=== PATIENT | female | born 1940 | race American Indian/Alaskan Native ===

== ENCOUNTER 2016-05-07 09:00 | Emergency (ER) | payer MEDICARE ==
[2016-05-07] MEDS ORDERED: NACL 0.9% 1000 ML 1,000 ML IV ONE (10:42)
[2016-05-07 11:07] LABS: Eosinophils % (Auto) 4.6 % (0.0-4.3); Hematocrit 32.9 % (30.3-42.9); Hemoglobin 10.7 gm/dl (10.1-14.3); Mean Corpuscular HGB Conc 33 % (30-34); Mean Corpuscular Hemoglobin 28 pg (28-32); Mean Corpuscular Volume 87 fl (79-97); Platelet Count 147 K/mm3 (140-440); Red Blood Count 3.78 M/mm3 (3.65-5.03); Red Cell Distribution Width 14.2 % (13.2-15.2); White Blood Count 4.3 K/mm3 (4.5-11.0)
[2016-05-07 11:26] LABS: Alanine Aminotransferase 20 units/L (7-56); Albumin 3.8 g/dL (3.9-5); Albumin/Globulin Ratio 1.2 %; Alkaline Phosphatase 57 units/L (35-129); Anion Gap 15 mmol/L; BUN/Creatinine Ratio 20.71; Bilirubin,Total 0.2 mg/dL (0.1-1.2); Blood Urea Nitrogen 29 mg/dL (7-17); Calcium 9.2 mg/dL (8.4-10.2); Carbon Dioxide 29 mmol/L (22-30); Chloride 104.4 mmol/L (98-107); Glucose 94 mg/dL (65-100); Potassium 4.9 mmol/L (3.6-5.0); Sodium 143 mmol/L (137-145)
[2016-05-07 11:44] LABS: Bilirubin,Direct < 0.2 mg/dL (0-0.2)
--- NOTE | 2016-05-07 12:42 | Emergency Department Report ---
ED General Adult HPI - General Chief complaint: Earache Stated complaint: EAR PAIN Time Seen by Provider: 05/07/16 10:30 Source: patient Mode of arrival: Ambulatory Limitations: No Limitations - History of Present Illness Initial comments: I am told that this patient was sent here by ambulance because she couldn't get an appointment with an ear nose and throat doctor. Supposedly she has been to the emergency department at [place] for right ear pain. She is not currently on an antibiotic. The patient herself is a very poor historian. After some time it does seem apparent that she indeed has some right ear discomfort. She does not have any other complaint. She actually does not know why she is here at the emergency department. She is aware she is in the emergency department notwithstanding. -: unknown Location: right (ear) Severity scale (0 -10): 0 Consistency: intermittent Improves with: none Worsens with: none Treatments Prior to Arrival: none - Related Data Home Medications Medication Instructions Recorded Confirmed Last Taken Hydrochlorothiazide 25 mg PO DAILY 11/27/13 05/07/16 05/06/16 Lisinopril [Zestril] 40 mg PO DAILY 11/27/13 05/07/16 05/06/16 Memantine HCl [Namenda] 10 mg PO BID 11/27/13 05/07/16 05/06/16 Oxybutynin [Ditropan] 10 mg PO BID 11/27/13 05/07/16 05/06/16 Simvastatin 10 mg PO QHS 11/27/13 05/07/16 05/06/16 Ascorbate Calcium [Vitamin C] 500 mg PO QDAY 01/05/14 05/07/16 05/06/16 Calcium Carbonate [Calcium] 600 mg PO QDAY 01/05/14 05/07/16 05/06/16 Cholecalciferol (Vitamin D3) 400 unit PO QDAY 01/05/14 05/07/16 05/06/16 [Vitamin D3] Vitamin E 400 unit PO QDAY 01/05/14 05/07/16 05/06/16 metFORMIN [Glucophage] 500 mg PO BID 01/05/14 05/07/16 05/06/16 Pregabalin [Lyrica] 1 cap PO BID 02/04/14 05/07/16 05/06/16 Rivastigmine Tartrate 6 mg PO BID 03/15/14 05/07/16 05/06/16 [Rivastigmine] Previous Rx's Medication Instructions Recorded Last Taken Type levETIRAcetam [Keppra TAB] 500 mg PO BID #60 tablet 12/28/15 05/06/16 Rx Amoxicillin/K Clav Tab [Augmentin 1 each PO Q8HR #21 tablet 05/07/16 Unknown Rx 500 MG TAB] Ofloxacin 0.3% [Floxin] 3 drops AD QID #1 bottle 05/07/16 Unknown Rx Allergies Allergy/AdvReac Type Severity Reaction Status Date / Time shellfish derived Allergy Nausea Verified 02/05/14 15:17 ED Review of Systems ROS: Stated complaint: EAR PAIN Other details as noted in HPI Constitutional: denies: chills, fever Eyes: denies: eye pain, eye discharge, vision change ENT: as per HPI, ear pain. denies: throat pain Respiratory: denies: cough, shortness of breath, wheezing Cardiovascular: denies: chest pain, palpitations Endocrine: no symptoms reported Gastrointestinal: denies: abdominal pain, nausea, diarrhea Genitourinary: denies: urgency, dysuria, discharge Musculoskeletal: denies: back pain, joint swelling, arthralgia Skin: denies: rash, lesions Neurological: denies: headache, weakness, paresthesias Psychiatric: denies: anxiety, depression Hematological/Lymphatic: denies: easy bleeding, easy bruising ED Past Medical Hx - Past Medical History Previous Medical History?: Yes Hx Hypertension: Yes Hx Heart Attack/AMI: No Hx Congestive Heart Failure: No Hx Diabetes: Yes Hx Deep Vein Thrombosis: No Hx GERD: Yes Hx Liver Disease: No Hx Renal Disease: Yes (CKD III, DR. PATRICK AU) Hx Sickle Cell Disease: No Hx Arthritis: Yes Hx Seizures: No Hx Psychiatric Treatment: Yes (anxiety) Hx Asthma: No Hx COPD: No Hx Tuberculosis: No Hx Dementia: Yes Hx HIV: No Additional medical history: neuropathy - Surgical History Past Surgical History?: No Hx Coronary Stent: No Hx Open Heart Surgery: No Hx Pacemaker: No Hx Internal Defibrillator: No Hx Cholecystectomy: No Hx Appendectomy: No Hx Breast Surgery: No - Social History Smoking Status: Unknown if ever smoked Substance Use Type: None - Medications Home Medications: Home Medications Medication Instructions Recorded Confirmed Last Taken Type Hydrochlorothiazide 25 mg PO DAILY 11/27/13 05/07/16 05/06/16 History Lisinopril [Zestril] 40 mg PO DAILY 11/27/13 05/07/16 05/06/16 History Memantine HCl [Namenda] 10 mg PO BID 11/27/13 05/07/16 05/06/16 History Oxybutynin [Ditropan] 10 mg PO BID 11/27/13 05/07/16 05/06/16 History Simvastatin 10 mg PO QHS 11/27/13 05/07/16 05/06/16 History Ascorbate Calcium [Vitamin C] 500 mg PO QDAY 01/05/14 05/07/16 05/06/16 History Calcium Carbonate [Calcium] 600 mg PO QDAY 01/05/14 05/07/16 05/06/16 History Cholecalciferol (Vitamin D3) 400 unit PO QDAY 01/05/14 05/07/16 05/06/16 History [Vitamin D3] Vitamin E 400 unit PO QDAY 01/05/14 05/07/16 05/06/16 History metFORMIN [Glucophage] 500 mg PO BID 01/05/14 05/07/16 05/06/16 History Pregabalin [Lyrica] 1 cap PO BID 02/04/14 05/07/16 05/06/16 History Rivastigmine Tartrate 6 mg PO BID 03/15/14 05/07/16 05/06/16 History [Rivastigmine] levETIRAcetam [Keppra TAB] 500 mg PO BID #60 tablet 12/28/15 05/07/16 05/06/16 Rx Amoxicillin/K Clav Tab [Augmentin 1 each PO Q8HR #21 tablet 05/07/16 Unknown Rx 500 MG TAB] Ofloxacin 0.3% [Floxin] 3 drops AD QID #1 bottle 05/07/16 Unknown Rx ED Physical Exam - General Limitations: Other (dementia) General appearance: alert, in no apparent distress - Head Head exam: Present: atraumatic, normocephalic - Eye Eye exam: Present: normal appearance. Absent: scleral icterus - ENT ENT exam: Present: mucous membranes moist, other (there is small amount of white discharge in the external auditory canal. The tympanic membrane cannot be visualized. There is mild tenderness on traction of the ear. However there is no contralateral involvement or erythema or edema of the external ear itself. ) - Neck Neck exam: Present: normal inspection. Absent: tenderness, meningismus - Respiratory Respiratory exam: Present: normal lung sounds bilaterally. Absent: respiratory distress - Cardiovascular Cardiovascular Exam: Present: regular rate, normal rhythm. Absent: systolic murmur, diastolic murmur, rubs, gallop - GI/Abdominal GI/Abdominal exam: Present: soft, normal bowel sounds. Absent: distended, tenderness, guarding, rebound - Extremities Exam Extremities exam: Present: normal inspection - Back Exam Back exam: Present: normal inspection - Neurological Exam Neurological exam: Present: alert, other (no acute focal deficit). Absent: oriented X3 (her name and where she is in the emergency department) - Psychiatric Psychiatric exam: Present: normal mood, flat affect - Skin Skin exam: Present: warm, dry, intact, normal color, other (appears dry minimal tenting). Absent: rash ED Course Vital Signs 05/07/16 05/07/16 05/07/16 10:08 12:17 13:03 Temperature 98.3 F 98.1 F Pulse Rate 73 66 Respiratory 18 18 16 Rate Blood Pressure 133/59 Blood Pressure 162/82 [Right] O2 Sat by Pulse 97 99 99 Oximetry ED Medical Decision Making - Lab Data Result diagrams: 05/07/16 10:46 05/07/16 10:46 Laboratory Results - last 24 hr 05/07/16 05/07/16 05/07/16 10:46 10:46 10:46 WBC 4.3 L RBC 3.78 Hgb 10.7 Hct 32.9 MCV 87 MCH 28 MCHC 33 RDW 14.2 Plt Count 147 Lymph % (Auto) 32.3 [place] % (Auto) 8.6 H Eos % (Auto) 4.6 H Baso % (Auto) 1.0 Lymph # 1.4 [place] # 0.4 Eos # 0.2 Baso # 0.0 Seg Neutrophils % 53.5 Seg Neutrophils # 2.3 Sodium 143 Potassium 4.9 Chloride 104.4 Carbon Dioxide 29 Anion Gap 15 BUN 29 H Creatinine 1.4 H Estimated GFR 44 BUN/Creatinine Ratio 20.71 Glucose 94 Calcium 9.2 Total Bilirubin 0.2 Direct Bilirubin < 0.2 AST 28 ALT 20 Alkaline Phosphatase 57 Ammonia 38.0 Total Protein 7.0 Albumin 3.8 L Albumin/Globulin Ratio 1.2 Laboratory Results - last 24 hr 05/07/16 05/07/16 05/07/16 10:46 10:46 10:46 WBC 4.3 L RBC 3.78 Hgb 10.7 Hct 32.9 MCV 87 MCH 28 MCHC 33 RDW 14.2 Plt Count 147 Lymph % (Auto) 32.3 [place] % (Auto) 8.6 H Eos % (Auto) 4.6 H Baso % (Auto) 1.0 Lymph # 1.4 [place] # 0.4 Eos # 0.2 Baso # 0.0 Seg Neutrophils % 53.5 Seg Neutrophils # 2.3 Sodium 143 Potassium 4.9 Chloride 104.4 Carbon Dioxide 29 Anion Gap 15 BUN 29 H Creatinine 1.4 H Estimated GFR 44 BUN/Creatinine Ratio 20.71 Glucose 94 Calcium 9.2 Total Bilirubin 0.2 Direct Bilirubin < 0.2 AST 28 ALT 20 Alkaline Phosphatase 57 Ammonia 38.0 Total Protein 7.0 Albumin 3.8 L Albumin/Globulin Ratio 1.2 Urine Color Urine Turbidity Urine pH Ur Specific [place] Urine Protein Urine Glucose (UA) Urine Ketones Urine Blood Urine Nitrite Urine Bilirubin Urine Urobilinogen Ur Leukocyte Esterase Urine WBC (Auto) Urine RBC (Auto) 05/07/16 12:24 WBC RBC Hgb Hct MCV MCH MCHC RDW Plt Count Lymph % (Auto) [place] % (Auto) Eos % (Auto) Baso % (Auto) Lymph # [place] # Eos # Baso # Seg Neutrophils % Seg Neutrophils # Sodium Potassium Chloride Carbon Dioxide Anion Gap BUN Creatinine Estimated GFR BUN/Creatinine Ratio Glucose Calcium Total Bilirubin Direct Bilirubin AST ALT Alkaline Phosphatase Ammonia Total Protein Albumin Albumin/Globulin Ratio Urine Color Yellow Urine Turbidity Clear Urine pH 5.0 Ur Specific [place] 1.013 Urine Protein <15 mg/dl Urine Glucose (UA) Neg Urine Ketones Neg Urine Blood Neg Urine Nitrite Neg Urine Bilirubin Neg Urine Urobilinogen < 2.0 Ur Leukocyte Esterase Neg Urine WBC (Auto) < 1.0 Urine RBC (Auto) < 1.0 Critical care attestation.: If time is entered above; I have spent that time in minutes in the direct care of this critically ill patient, excluding procedure time. 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 Return fever here swelling any acute change or problem. Tylenol for pain. Prescriptions: Amoxicillin/K Clav Tab [Augmentin 500 MG TAB] 1 each PO Q8HR #21 tablet Ofloxacin 0.3% [Floxin] 3 drops AD QID #1 bottle Referrals: MANJULA CRUZ MD [Primary Care Provider] - 3-5 Days AG MALCOLM MD [Staff Physician] - 2-3 Days Time of Disposition: 14:18
[2016-05-07 12:51] LABS: Bilirubin,Urine NEG (Negative); Blood,Urine NEG (Negative); Ketones,Urine NEG (Negative); Leukocyte Esterase,Urine NEG (Negative); Nitrite,Urine NEG (Negative); Protein,Urine <15 mg/dL mg/dL (Negative); RBC,Urine < 1.0 /HPF (0.0-6.0); Urobilinogen,Urine < 2.0 mg/dL (<2.0); WBC,Urine < 1.0 /HPF (0.0-6.0)
[2016-05-07] MEDS ORDERED: NORCO 5/325 ONE (14:47)
[2016-05-07] MEDS ORDERED: NORCO 5/325 PO ONE (15:01)
[2016-05-07 15:03] VITALS: BP 163/86
== END 2016-05-07 15:25 | disposition home or self-care (01) ==
LOC: ED 09:00
DX: H60.61 Unspecified chronic otitis externa, right ear (principal); E11.69 Type 2 diabetes mellitus with other specified complication; N28.9 Disorder of kidney and ureter, unspecified; G30.9 Alzheimer's disease, unspecified; F02.81 Dementia in other diseases classified elsewhere, unspecified severity, with behavioral disturbance; E11.9 Type 2 diabetes mellitus without complications; K21.9 Gastro-esophageal reflux disease without esophagitis; I12.9 Hypertensive chronic kidney disease with stage 1 through stage 4 chronic kidney disease, or unspecified chronic kidney disease; N18.3 Chronic kidney disease, stage 3 (moderate); F03.90 Unspecified dementia, unspecified severity, without behavioral disturbance, psychotic disturbance, mood disturbance, and anxiety
CPT/HCPCS: 36415; 80048; 80074; 81001; 82140; 85025; 96360; 96361; 99284; J7030

== ENCOUNTER 2017-08-02 06:11 | Inpatient (IN) | payer MEDICARE ==
[2017-08-02 07:34] LABS: Hematocrit 35.4 % (30.3-42.9); Hemoglobin 11.4 gm/dl (10.1-14.3); Mean Corpuscular HGB Conc 32 % (30-34); Mean Corpuscular Hemoglobin 28 pg (28-32); Mean Corpuscular Volume 88 fl (79-97); Platelet Count 191 K/mm3 (140-440); Red Blood Count 4.04 M/mm3 (3.65-5.03); Red Cell Distribution Width 14.2 % (13.2-15.2)
--- NOTE | 2017-08-02 08:00 | XRay Report ---
FINAL REPORT EXAM: XR CHEST 1V AP HISTORY: syncope TECHNIQUE: AP portable view(s) of the chest obtained. PRIORS: None. FINDINGS: No mediastinal shift. Cardiac silhouette is not enlarged. No pneumothorax, effusion, or focal pulmonary opacity identified. No acute skeletal findings. IMPRESSION: No acute pulmonary finding identified.
--- NOTE | 2017-08-02 08:07 | Cat Scan Report ---
CT HEAD WITHOUT CONTRAST INDICATION: Syncope. COMPARISON: November [address] and MRI. FINDINGS: Noncontrast head CT limited due to motion, though suggests stable, age-appropriate ventricles and sulci with mild periventricular white matter hypodensities. No definite acute infarct, hemorrhage, mass effect or midline shift. No abnormal extra-axial fluid collections. Grossly normal posterior fossa with preserved basilar cisterns. Stable right cataract surgery. Mild left maxillary sinus mucosal thickening. Clear remainder imaged paranasal sinuses and mastoid air cells. Mild atherosclerotic ICA calcifications. Intact calvarium and scalp. Radiopaque maxillary molar dental filling. CONCLUSION: No acute intracranial CT abnormality with age-appropriate atrophy, microvascular changes and left maxillary sinusitis on this limited exam, as described. Thank you for the opportunity to participate in this patient's care.
[2017-08-02 08:40] LABS: Alanine Aminotransferase 13 units/L (7-56); Albumin 4.1 g/dL (3.9-5); BUN/Creatinine Ratio 22; Blood Urea Nitrogen 28 mg/dL (7-17); Calcium 9.4 mg/dL (8.4-10.2); Hemolysis Index 33
--- NOTE | 2017-08-02 08:55 | Emergency Department Report ---
ED General Adult HPI - General Chief complaint: Syncope Stated complaint: UNRESPONSICE /PER FAMILY Time Seen by Provider: 08/02/17 06:39 Source: EMS Mode of arrival: Ambulatory Limitations: Altered Mental Status - History of Present Illness Initial comments: Patient presents to the emergency department with complaint of a syncopal episode. Patient currently denies any chest pain, shortness of breath, or headache. -: Sudden Location: head Radiation: non-radiation Severity scale (0 -10): 1 Quality: dull Consistency: constant Improves with: none Worsens with: none Associated Symptoms: denies other symptoms Treatments Prior to Arrival: none - Related Data Home Medications Medication Instructions Recorded Confirmed Last Taken Hydrochlorothiazide 25 mg PO DAILY 11/27/13 05/07/16 05/06/16 Lisinopril [Zestril] 40 mg PO DAILY 11/27/13 05/07/16 05/06/16 Memantine HCl [Namenda] 10 mg PO BID 11/27/13 05/07/16 05/06/16 Oxybutynin [Ditropan] 10 mg PO BID 11/27/13 05/07/16 05/06/16 Simvastatin 10 mg PO QHS 11/27/13 05/07/16 05/06/16 Ascorbate Calcium [Vitamin C] 500 mg PO QDAY 01/05/14 05/07/16 05/06/16 Calcium Carbonate [Calcium] 600 mg PO QDAY 01/05/14 05/07/16 05/06/16 Cholecalciferol (Vitamin D3) 400 unit PO QDAY 01/05/14 05/07/16 05/06/16 [Vitamin D3] Vitamin E 400 unit PO QDAY 01/05/14 05/07/16 05/06/16 metFORMIN [Glucophage] 500 mg PO BID 01/05/14 05/07/16 05/06/16 Pregabalin [Lyrica] 1 cap PO BID 02/04/14 05/07/16 05/06/16 Rivastigmine Tartrate 6 mg PO BID 03/15/14 05/07/16 05/06/16 [Rivastigmine] Previous Rx's Medication Instructions Recorded Last Taken Type levETIRAcetam [Keppra TAB] 500 mg PO BID #60 tablet 12/28/15 05/06/16 Rx Amoxicillin/K Clav Tab [Augmentin 1 each PO Q8HR #21 tablet 05/07/16 Unknown Rx 500 MG TAB] Ofloxacin 0.3% [Floxin] 3 drops AD QID #1 bottle 05/07/16 Unknown Rx Allergies Allergy/AdvReac Type Severity Reaction Status Date / Time shellfish derived Allergy Nausea Verified 02/05/14 15:17 ED Review of Systems ROS: Stated complaint: UNRESPONSICE /PER FAMILY Other details as noted in HPI Comment: All other systems reviewed and negative Constitutional: denies: chills, fever Eyes: denies: eye pain, eye discharge, vision change ENT: denies: ear pain, throat pain Respiratory: denies: cough, shortness of breath, wheezing Cardiovascular: denies: chest pain, palpitations Endocrine: no symptoms reported Gastrointestinal: denies: abdominal pain, nausea, diarrhea Genitourinary: denies: urgency, dysuria, discharge Musculoskeletal: denies: back pain, joint swelling, arthralgia Skin: denies: rash, lesions Neurological: denies: headache, weakness, paresthesias Psychiatric: denies: anxiety, depression Hematological/Lymphatic: denies: easy bleeding, easy bruising ED Past Medical Hx - Past Medical History Hx Hypertension: Yes Hx Heart Attack/AMI: No Hx Congestive Heart Failure: No Hx Diabetes: Yes Hx Deep Vein Thrombosis: No Hx GERD: Yes Hx Liver Disease: No Hx Renal Disease: Yes (CKD III, DR. NGUYEN NEPHKANE) Hx Sickle Cell Disease: No Hx Arthritis: Yes Hx Seizures: No Hx Psychiatric Treatment: Yes (anxiety) Hx Asthma: No Hx COPD: No Hx Tuberculosis: No Hx Dementia: Yes Hx HIV: No Additional medical history: neuropathy - Surgical History Hx Coronary Stent: No Hx Open Heart Surgery: No Hx Pacemaker: No Hx Internal Defibrillator: No Hx Cholecystectomy: No Hx Appendectomy: No Hx Breast Surgery: No - Social History Smoking Status: Unknown if ever smoked Substance Use Type: None - Medications Home Medications: Home Medications Medication Instructions Recorded Confirmed Last Taken Type Hydrochlorothiazide 25 mg PO DAILY 11/27/13 05/07/16 05/06/16 History Lisinopril [Zestril] 40 mg PO DAILY 11/27/13 05/07/16 05/06/16 History Memantine HCl [Namenda] 10 mg PO BID 11/27/13 05/07/16 05/06/16 History Oxybutynin [Ditropan] 10 mg PO BID 11/27/13 05/07/16 05/06/16 History Simvastatin 10 mg PO QHS 11/27/13 05/07/16 05/06/16 History Ascorbate Calcium [Vitamin C] 500 mg PO QDAY 01/05/14 05/07/16 05/06/16 History Calcium Carbonate [Calcium] 600 mg PO QDAY 01/05/14 05/07/16 05/06/16 History Cholecalciferol (Vitamin D3) 400 unit PO QDAY 01/05/14 05/07/16 05/06/16 History [Vitamin D3] Vitamin E 400 unit PO QDAY 01/05/14 05/07/16 05/06/16 History metFORMIN [Glucophage] 500 mg PO BID 01/05/14 05/07/16 05/06/16 History Pregabalin [Lyrica] 1 cap PO BID 02/04/14 05/07/16 05/06/16 History Rivastigmine Tartrate 6 mg PO BID 03/15/14 05/07/16 05/06/16 History [Rivastigmine] levETIRAcetam [Keppra TAB] 500 mg PO BID #60 tablet 12/28/15 05/07/16 05/06/16 Rx Amoxicillin/K Clav Tab [Augmentin 1 each PO Q8HR #21 tablet 05/07/16 Unknown Rx 500 MG TAB] Ofloxacin 0.3% [Floxin] 3 drops AD QID #1 bottle 05/07/16 Unknown Rx ED Physical Exam - General Limitations: Altered Mental Status General appearance: alert, in no apparent distress - Head Head exam: Present: atraumatic, normocephalic - Eye Eye exam: Present: normal appearance - ENT ENT exam: Present: mucous membranes moist - Neck Neck exam: Present: normal inspection, other (no midline C-spine tenderness) - Respiratory Respiratory exam: Present: normal lung sounds bilaterally. Absent: respiratory distress, wheezes, rales - Cardiovascular Cardiovascular Exam: Present: regular rate, normal rhythm. Absent: systolic murmur, diastolic murmur, rubs, gallop - GI/Abdominal GI/Abdominal exam: Present: soft, normal bowel sounds. Absent: distended, tenderness - Extremities Exam Extremities exam: Present: normal inspection - Back Exam Back exam: Present: normal inspection - Neurological Exam Neurological exam: Present: alert, oriented X3, CN II-XII intact - Psychiatric Psychiatric exam: Present: normal affect, normal mood - Skin Skin exam: Present: warm, dry, intact, normal color. Absent: rash ED Course Vital Signs 08/02/17 08/02/17 08/02/17 06:19 06:20 06:21 Temperature Pulse Rate 74 79 Respiratory 14 23 Rate Blood Pressure 170/85 Blood Pressure [Right] O2 Sat by Pulse 100 100 98 Oximetry 08/02/17 08/02/17 08/02/17 06:22 06:24 06:26 Temperature Pulse Rate 74 71 75 Respiratory 16 20 16 Rate Blood Pressure 170/85 170/85 170/85 Blood Pressure [Right] O2 Sat by Pulse 97 99 98 Oximetry 08/02/17 08/02/17 08/02/17 06:28 06:30 06:32 Temperature Pulse Rate 86 91 H 78 Respiratory 12 19 18 Rate Blood Pressure 170/85 170/85 170/85 Blood Pressure [Right] O2 Sat by Pulse 95 95 93 Oximetry 08/02/17 08/02/17 08/02/17 06:34 06:36 06:38 Temperature Pulse Rate 134 H 108 H 93 H Respiratory 23 14 19 Rate Blood Pressure 170/85 170/85 170/85 Blood Pressure [Right] O2 Sat by Pulse 95 94 95 Oximetry 08/02/17 08/02/17 08/02/17 06:40 06:42 07:12 Temperature 98.9 F Pulse Rate 83 82 Respiratory 18 20 20 Rate Blood Pressure 170/85 170/85 Blood Pressure 170/85 [Right] O2 Sat by Pulse 99 96 98 Oximetry ED Medical Decision Making - Lab Data Result diagrams: 08/02/17 07:11 08/02/17 07:04 - EKG Data -: EKG Interpreted by Ar EKG shows normal: sinus rhythm (rate 79) Rate: normal - EKG Data Interpretation: nonspecific ST-T wave les - Medical Decision Making Discussed results with patient and plan of admission Critical care attestation.: If time is entered above; I have spent that time in minutes in the direct care of this critically ill patient, excluding procedure time. ED Disposition Clinical Impression: Syncope Disposition: OP ADMIT IP TO THIS HOSP Is pt being admited?: Yes Does the pt Need Aspirin: No Condition: Fair Instructions: Syncope (ED) Referrals: PRIMARY CARE, [Primary Care Provider] - 3-5 Days Time of Disposition: 09:50
[2017-08-02 09:56] LABS: Basophils % (Manual) 0 % (0.0-1.8); Total Cells Counted 100
[2017-08-02] MEDS ORDERED: ZOFRAN IV PRN (10:00)
[2017-08-02] MEDS ORDERED: TYLENOL PO PRN (10:00)
[2017-08-02] MEDS ORDERED: CHOLECALCIFEROL 400 UNIT PO SCH (10:00)
[2017-08-02] MEDS ORDERED: KEPPRA PO SCH ×2 (10:00→12:00)
[2017-08-02] MEDS ORDERED: VITAMIN E 400 UNIT PO SCH (10:00)
[2017-08-02] MEDS ORDERED: ASCORBATE CALCIUM 500 MG PO SCH (10:00)
[2017-08-02] MEDS ORDERED: FLOXIN OTIC AD SCH (10:00)
[2017-08-02] MEDS ORDERED: SODIUM CHLORIDE FLUSH SYRINGE 10 ML IV PRN (10:00)
[2017-08-02] MEDS ORDERED: APRESOLINE IV PRN (10:02)
--- NOTE | 2017-08-02 10:08 | History and Physical Report ---
History of Present Illness Chief complaint: Syncope History of present illness: 77-year-old lady who presented with syncope. Unfortunately patient has advanced dementia and is unable to give any history, she does not remember what happened. She is unable to discern if she lost consciousness or not. I asked her about when she fell down. Patient seems confused. 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, osteoarthritis, anxiety disorder, seizures and neuropathy PAST SURGICAL HISTORY: Hysterectomy SOCIAL HISTORY: Denies alcohol, tobacco, drugs FAMILY HISTORY: Hypertension, diabetes Medications and Allergies Allergies Allergy/AdvReac Type Severity Reaction Status Date / Time shellfish derived Allergy Nausea Verified 02/05/14 15:17 Home Medications Medication Instructions Recorded Confirmed Last Taken Type Hydrochlorothiazide 25 mg PO DAILY 11/27/13 08/02/17 05/06/16 History Lisinopril [Zestril] 40 mg PO DAILY 11/27/13 08/02/17 05/06/16 History Memantine HCl [Namenda] 10 mg PO BID 11/27/13 08/02/17 05/06/16 History Oxybutynin [Ditropan] 10 mg PO BID 11/27/13 08/02/17 05/06/16 History Simvastatin 10 mg PO QHS 11/27/13 08/02/17 05/06/16 History metFORMIN [Glucophage] 500 mg PO BID 01/05/14 08/02/17 05/06/16 History Metoprolol Succinate [Toprol Xl] 50 mg PO QDAY 08/02/17 08/02/17 Unknown History levETIRAcetam [Keppra TAB] 1,500 mg PO BID 08/02/17 08/02/17 Unknown History Active Meds: Active Medications Acetaminophen (Tylenol) 650 mg PO Q4H PRN PRN Reason: Pain MILD(1-3)/Fever >100.5/[facility]LE Amlodipine Besylate (Norvasc) 10 mg PO QDAY [facility] Calcium Carbonate/Glycine (Oscal) 600 mg PO QDAY [facility] Enoxaparin Sodium (Lovenox) 40 mg SUB-Q QDAY@2200 [facility] Hydralazine HCl (Apresoline) 10 mg IV Q4HR PRN PRN Reason: BP >160/100 Hydrochlorothiazide (Hctz) 25 mg PO DAILY [facility] Levetiracetam (Keppra) 500 mg PO BID [facility] Memantine (Namenda) 10 mg PO BID [facility] Miscellaneous Medication (Ascorbate Calcium [Vitamin C]) 500 mg PO QDAY [facility] Miscellaneous Medication (Cholecalciferol (Vitamin D3) [Vitamin D3]) 400 unit PO QDAY [facility] Miscellaneous Medication (Simvastatin [Simvastatin]) 10 mg PO QHS [facility] Miscellaneous Medication (Vitamin E [Vitamin E]) 400 unit PO QDAY [facility] Ofloxacin (Floxin Otic) 3 drops AD QID [facility] Ondansetron HCl (Zofran) 4 mg IV Q8H PRN PRN Reason: Nausea And Vomiting Oxybutynin Chloride (Ditropan) 10 mg PO BID [facility] Sodium Chloride (Sodium Chloride Flush Syringe 10 Ml) 10 ml IV BID [facility] Sodium Chloride (Sodium Chloride Flush Syringe 10 Ml) 10 ml IV PRN PRN PRN Reason: LINE FLUSH Sodium Polystyrene Sulfonate (Kionex) 15 gm PO ONCE ONE Stop: 08/02/17 10:03 Review of Systems ROS unobtainable: due to mental status Exam - Constitutional Vitals: Temp Pulse Resp BP Pulse Ox 98.9 F 82 20 170/85 98 08/02/17 06:42 08/02/17 06:42 08/02/17 07:12 08/02/17 06:42 08/02/17 07:12 General appearance: Present: no acute distress, well-nourished - EENT Eyes: Present: PERRL ENT: hearing intact, clear oral mucosa - Neck Neck: Present: supple, normal ROM - Respiratory Respiratory effort: normal Respiratory: bilateral: CTA - Cardiovascular Heart Sounds: Present: S1 & S2. Absent: rub, click - Extremities Extremities: pulses symmetrical, No edema Peripheral Pulses: within normal limits - Abdominal General gastrointestinal: Present: soft, non-tender, non-distended, normal bowel sounds Female genitourinary: Present: normal - Integumentary Integumentary: Present: clear, warm, dry - Musculoskeletal Musculoskeletal: gait normal, strength equal bilaterally - Psychiatric Psychiatric: appropriate mood/affect, no intact judgment & insight (demented) - Neurologic Neurologic: CNII-XII intact, moves all extremities Results - Labs CBC & Chem 7: 08/02/17 07:11 08/06/17 04:39 Labs: Laboratory Last Values WBC 4.5 K/mm3 (4.5-11.0) 08/02/17 07:11 RBC 4.04 M/mm3 (3.65-5.03) 08/02/17 07:11 Hgb 11.4 gm/dl (10.1-14.3) 08/02/17 07:11 Hct 35.4 % (30.3-42.9) 08/02/17 07:11 MCV 88 fl (79-97) 08/02/17 07:11 MCH 28 pg (28-32) 08/02/17 07:11 MCHC 32 % (30-34) 08/02/17 07:11 RDW 14.2 % (13.2-15.2) 08/02/17 07:11 Plt Count 191 K/mm3 (140-440) 08/02/17 07:11 Add Manual Diff Complete 08/02/17 07:11 Total Counted 100 08/02/17 07:11 Seg Neuts % (Manual) 66.0 % (40.0-70.0) 08/02/17 07:11 Band Neutrophils % 0 % 08/02/17 07:11 Lymphocytes % (Manual) 24.0 % (13.4-35.0) 08/02/17 07:11 Reactive Lymphs % (Man) 0 % 08/02/17 07:11 Monocytes % (Manual) 9.0 % (0.0-7.3) H 08/02/17 07:11 Eosinophils % (Manual) 1.0 % (0.0-4.3) 08/02/17 07:11 Basophils % (Manual) 0 % (0.0-1.8) 08/02/17 07:11 Metamyelocytes % 0 % 08/02/17 07:11 Myelocytes % 0 % 08/02/17 07:11 Promyelocytes % 0 % 08/02/17 07:11 Blast Cells % 0 % 08/02/17 07:11 Nucleated RBC % Not Reportable 08/02/17 07:11 Seg Neutrophils # Man 3.0 K/mm3 (1.8-7.7) 08/02/17 07:11 Band Neutrophils # 0.0 K/mm3 08/02/17 07:11 Lymphocytes # (Manual) 1.1 K/mm3 (1.2-5.4) L 08/02/17 07:11 Abs React Lymphs (Man) 0.0 K/mm3 08/02/17 07:11 Monocytes # (Manual) 0.4 K/mm3 (0.0-0.8) 08/02/17 07:11 Eosinophils # (Manual) 0.0 K/mm3 (0.0-0.4) 08/02/17 07:11 Basophils # (Manual) 0.0 K/mm3 (0.0-0.1) 08/02/17 07:11 Metamyelocytes # 0.0 K/mm3 08/02/17 07:11 Myelocytes # 0.0 K/mm3 08/02/17 07:11 Promyelocytes # 0.0 K/mm3 08/02/17 07:11 Blast Cells # 0.0 K/mm3 08/02/17 07:11 WBC Morphology Not Reportable 08/02/17 07:11 Hypersegmented Neuts Not Reportable 08/02/17 07:11 Hyposegmented Neuts Not Reportable 08/02/17 07:11 Hypogranular Neuts Not Reportable 08/02/17 07:11 Smudge Cells Not Reportable 08/02/17 07:11 Toxic Granulation Not Reportable 08/02/17 07:11 Toxic Vacuolation Not Reportable 08/02/17 07:11 Dohle Bodies Not Reportable 08/02/17 07:11 Pelger-Huet Anomaly Not Reportable 08/02/17 07:11 Lisy Rods Not Reportable 08/02/17 07:11 Platelet Estimate Appears normal 08/02/17 07:11 Clumped Platelets Not Reportable 08/02/17 07:11 Plt Clumps, EDTA Not Reportable 08/02/17 07:11 Large Platelets Not Reportable 08/02/17 07:11 Giant Platelets Not Reportable 08/02/17 07:11 Platelet Satelliting Not Reportable 08/02/17 07:11 Plt Morphology Comment Not Reportable 08/02/17 07:11 RBC Morphology Not Reportable 08/02/17 07:11 Dimorphic RBCs Not Reportable 08/02/17 07:11 Polychromasia Not Reportable 08/02/17 07:11 Hypochromasia Not Reportable 08/02/17 07:11 Poikilocytosis Not Reportable 08/02/17 07:11 Anisocytosis Not Reportable 08/02/17 07:11 Microcytosis Not Reportable 08/02/17 07:11 Macrocytosis Not Reportable 08/02/17 07:11 Spherocytes Not Reportable 08/02/17 07:11 Pappenheimer Bodies Not Reportable 08/02/17 07:11 Sickle Cells Not Reportable 08/02/17 07:11 Target Cells Not Reportable 08/02/17 07:11 Tear Drop Cells Not Reportable 08/02/17 07:11 Ovalocytes Not Reportable 08/02/17 07:11 Helmet Cells Not Reportable 08/02/17 07:11 [place] Bodies Not Reportable 08/02/17 07:11 [place] Rings Not Reportable 08/02/17 07:11 Carlo Cells Not Reportable 08/02/17 07:11 Bite Cells Not Reportable 08/02/17 07:11 Crenated Cell Not Reportable 08/02/17 07:11 Elliptocytes Not Reportable 08/02/17 07:11 Acanthocytes (Spur) Not Reportable 08/02/17 07:11 Rouleaux Not Reportable 08/02/17 07:11 Hemoglobin C Crystals Not Reportable 08/02/17 07:11 Schistocytes Not Reportable 08/02/17 07:11 Malaria parasites Not Reportable 08/02/17 07:11 Ankit Bodies Not Reportable 08/02/17 07:11 Hem Pathologist Commnt No 08/02/17 07:11 Sodium 145 mmol/L (137-145) 08/02/17 07:04 Potassium 5.2 mmol/L (3.6-5.0) H 08/02/17 07:04 Chloride 106.2 mmol/L (98-107) 08/02/17 07:04 Carbon Dioxide 23 mmol/L (22-30) 08/02/17 07:04 Anion Gap 21 mmol/L 08/02/17 07:04 BUN 28 mg/dL (7-17) H 08/02/17 07:04 Creatinine 1.3 mg/dL (0.7-1.2) H 08/02/17 07:04 Estimated GFR 48 ml/min 08/02/17 07:04 BUN/Creatinine Ratio 22 % 08/02/17 07:04 Glucose 179 mg/dL (65-100) H 08/02/17 07:04 Calcium 9.4 mg/dL (8.4-10.2) 08/02/17 07:04 Total Bilirubin < 0.20 mg/dL (0.1-1.2) 08/02/17 07:04 AST 18 units/L (5-40) 08/02/17 07:04 ALT 13 units/L (7-56) 08/02/17 07:04 Alkaline Phosphatase 85 units/L (35-129) 08/02/17 07:04 Troponin T < 0.010 ng/mL (0.00-0.029) 08/02/17 07:04 NT-Pro-B Natriuret Pep 75.99 pg/mL (0-900) 08/02/17 07:04 Total Protein 7.6 g/dL (6.3-8.2) 08/02/17 07:04 Albumin 4.1 g/dL (3.9-5) 08/02/17 07:04 Albumin/Globulin Ratio 1.2 % 08/02/17 07:04 Assessment and Plan Assessment and plan: 77-year-old woman admitted for syncope and Syncope; troponin negative, obtain echo and stress test, hold Lyrica and Exelon as he might have led to syncope Hyperkalemia; may be related to SANJIV inhibitor, hold SANJIV inhibitor for now, give a dose of Kayexalate Chronic kidney disease stage II to 3; avoid nephrotoxins Alzheimer's dementia; supportive care Hypertensive urgency : Optimize BP medications Tachycardia, obtain EKG
[2017-08-02] MEDS ORDERED: KIONEX PO ONE (11:00)
--- NOTE | 2017-08-02 11:59 | Consultation ---
History of Present Illness Consult date: 08/02/17 Requesting physician: KATHE FLYNN Consult reason: syncope History of present illness: The pt is a 77-year-old female with a past medical history significant for HTN, HLP, DM, TIA, GERD, Alzheimer's dementia, CKD, OA, anxiety, seizures and neuropathy. She is previously unknown to our practice. She presented with c/o near syncope. She states that she was at home yesterday when she suddenly felt dizzy and felt as though she may pass out. Her daughter then decided to get her evaluated. Pt denies any loss of consciousness. Pt denies any chest pain, palpitations, n/v, diaphoresis or syncope. On evaluation, she denies any current complaints. Head CT with NAF. Echo done 11/2015 showed EF 50-55%, mild LVH, impaired relaxation, mild MR, mild TR. Past History Past Medical History: arthritis, diabetes, GERD, hypertension, hyperlipidemia, seizures, other (TIA; dementia) Social history: lives with family, smoking (former). denies: alcohol abuse, prescription drug abuse Medications and Allergies Allergies Allergy/AdvReac Type Severity Reaction Status Date / Time shellfish derived Allergy Nausea Verified 02/05/14 15:17 Home Medications Medication Instructions Recorded Confirmed Last Taken Type Hydrochlorothiazide 25 mg PO DAILY 11/27/13 08/02/17 05/06/16 History Lisinopril [Zestril] 40 mg PO DAILY 11/27/13 08/02/17 05/06/16 History Memantine HCl [Namenda] 10 mg PO BID 11/27/13 08/02/17 05/06/16 History Oxybutynin [Ditropan] 10 mg PO BID 11/27/13 08/02/17 05/06/16 History Simvastatin 10 mg PO QHS 11/27/13 08/02/17 05/06/16 History metFORMIN [Glucophage] 500 mg PO BID 01/05/14 08/02/17 05/06/16 History Metoprolol Succinate [Toprol Xl] 50 mg PO QDAY 08/02/17 08/02/17 Unknown History levETIRAcetam [Keppra TAB] 1,500 mg PO BID 08/02/17 08/02/17 Unknown History Active Meds: Active Medications Acetaminophen (Tylenol) 650 mg PO Q4H PRN PRN Reason: Pain MILD(1-3)/Fever >100.5/[facility] Amlodipine Besylate (Norvasc) 10 mg PO QDAY [facility] Ascorbic Acid (Vitamin C) 500 mg PO QDAY [facility] Calcium Carbonate/Glycine (Oscal) 1,250 mg PO QDAY [facility] Cholecalciferol (Vitamin D3) 400 unit PO BID [facility] Enoxaparin Sodium (Lovenox) 40 mg SUB-Q QDAY@2200 [facility] Hydralazine HCl (Apresoline) 10 mg IV Q4HR PRN PRN Reason: BP >160/100 Hydrochlorothiazide (Hctz) 25 mg PO DAILY [facility] Levetiracetam (Keppra) 750 mg PO BID [facility] Memantine (Namenda) 10 mg PO BID [facility] Metoprolol Succinate (Toprol Xl) 50 mg PO QDAY [facility] Ondansetron HCl (Zofran) 4 mg IV Q8H PRN PRN Reason: Nausea And Vomiting Oxybutynin Chloride (Ditropan) 10 mg PO BID [facility] Pravastatin Sodium (Pravachol) 20 mg PO QHS [facility] Sodium Chloride (Sodium Chloride Flush Syringe 10 Ml) 10 ml IV BID [facility] Sodium Chloride (Sodium Chloride Flush Syringe 10 Ml) 10 ml IV PRN PRN PRN Reason: LINE FLUSH Vitamin E (Vitamin E Cap) 400 unit PO QDAY [facility] Review of Systems Constitutional: no weight loss, no weight gain, no fever, no chills, no sweats Ears, nose, mouth and throat: no ear pain, no nose pain, no sinus pressure, no sinus pain Cardiovascular: lightheadedness, no chest pain, no orthopnea, no palpitations, no rapid/irregular heart beat, no edema, no syncope, no shortness of breath, no dyspnea on exertion, no paroxysmal nocturnal dyspnea, no high blood pressure, no leg edema Respiratory: no cough, no shortness of breath, no dyspnea on exertion, no congestion, no wheezing, no pain on inspiration Gastrointestinal: no abdominal pain, no nausea, no vomiting, no diarrhea, no constipation, no change in bowel habits Genitourinary Female: no pelvic pain, no flank pain, no dysuria, no urinary frequency, no urgency Musculoskeletal: no neck stiffness, no neck pain, no shooting arm pain, no arm numbness/tingling, no low back pain, no shooting leg pain, no leg numbness/ tingling, no redness of joints Integumentary: no rash, no pruritis, no redness, no sores, no wounds Neurological: no head injury, no paralysis, no weakness, no parathesias, no numbness, no tingling, no seizures, no syncope Psychiatric: anxiety Endocrine: no cold intolerance, no heat intolerance Hematologic/Lymphatic: no easy bruising, no easy bleeding Allergic/Immunologic: no urticaria, no wheezing, no persistent infections Physical Examination Vital Signs Pulse Ox 100 08/02/17 06:19 General appearance: no acute distress HEENT: Positive: PERRL, Normocephaly, Mucus Membranes Moist Neck: Positive: neck supple, trachea midline Cardiac: Positive: Reg Rate and Rhythm, S1/S2, Systolic Murmur Lungs: Positive: clear to auscultation Neuro: Positive: Grossly Intact, Cranial Nerve 2-12 Intact Abdomen: Positive: Soft. Negative: Tender Skin: Positive: Clear. Negative: Rash, Wound Musculoskeletal: No Fluid Collection, No Pain, Normal Range of Motion Extremities: Absent: edema Results 08/02/17 07:11 08/02/17 07:04 Cardiac Enzymes 08/02/17 Range/Units 07:04 AST 18 (5-40) units/L CBC 08/02/17 Range/Units 07:11 WBC 4.5 (4.5-11.0) K/mm3 RBC 4.04 (3.65-5.03) M/mm3 Hgb 11.4 (10.1-14.3) gm/dl Hct 35.4 (30.3-42.9) % Plt Count 191 (140-440) K/mm3 Comprehensive Metabolic Panel 08/02/17 Range/Units 07:04 Sodium 145 (137-145) mmol/L Potassium 5.2 H (3.6-5.0) mmol/L Chloride 106.2 (98-107) mmol/L Carbon Dioxide 23 (22-30) mmol/L BUN 28 H (7-17) mg/dL Creatinine 1.3 H (0.7-1.2) mg/dL Glucose 179 H (65-100) mg/dL Calcium 9.4 (8.4-10.2) mg/dL AST 18 (5-40) units/L ALT 13 (7-56) units/L Alkaline Phosphatase 85 (35-129) units/L Total Protein 7.6 (6.3-8.2) g/dL Albumin 4.1 (3.9-5) g/dL - Imaging and Cardiology Echo: pending EKG: report reviewed, image reviewed EKG interpretations - Telemetry EKG Rhythm: Sinus Rhythm - EKG Sinus rhythms and dysrhythmias: sinus rhythm Myocardial infarction: septal PR (old age or ind, anterior PR (old age or i Assessment and Plan Assessment: Near syncope - head CT with NAF HTN HLP DM H/o TIA Seizure d/o GERD Alzheimer's dementia CKD OA Plan: Obtain echo. Obtain orthostatics. Proceed with lexiscan MPI stress test in AM. NPO after MN. Assessment and plan of care reviewed with pt at bedside. The patient has been seen in conjunction with Dr. Arias who agrees with the assessment and plan of care.
[2017-08-02] MEDS: VITAMIN E CAP PO SCH (13:00)
[2017-08-02] MEDS: NORVASC PO SCH (13:00)
[2017-08-02] MEDS: NAMENDA PO SCH ×2 (13:00→23:40)
[2017-08-02] MEDS: DITROPAN PO SCH (13:00)
[2017-08-02] MEDS: VITAMIN C PO SCH (13:00)
[2017-08-02] MEDS: VITAMIN D3 PO SCH (13:00)
[2017-08-02] MEDS: HCTZ PO SCH (13:00)
[2017-08-02] MEDS: OSCAL PO SCH (13:00)
[2017-08-02] MEDS ORDERED: KEPPRA 1,500 MG in NACL 0.9% 100 ML IV SCH (14:00)
[2017-08-02 14:08] LABS: Bacteria,Urine 1+ /HPF (Negative); Bilirubin,Urine NEG (Negative); Blood,Urine NEG (Negative); Color,Urine Straw (Yellow); Mucus,Urine FEW /HPF; Protein,Urine <15 mg/dL mg/dL (Negative); Urobilinogen,Urine < 2.0 mg/dL (<2.0)
[2017-08-02 14:16] LABS: Amphetamine Screen,Urine PRESUMPTIVE NEGATIVE; Benzodiazepines Screen,Urine PRESUMPTIVE NEGATIVE; Cannabinoid Screen,Urine PRESUMPTIVE NEGATIVE; Cocaine Screen,Urine PRESUMPTIVE NEGATIVE; Methadone Screen,Urine PRESUMPTIVE NEGATIVE; Opiate Screen,Urine PRESUMPTIVE NEGATIVE
[2017-08-02] MEDS: TOPROL XL PO SCH (14:16)
[2017-08-02] MEDS: SODIUM CHLORIDE FLUSH SYRINGE 10 ML IV SCH (16:30)
--- NOTE | 2017-08-02 20:28 | Consultation ---
History of Present Illness Consult date: 08/02/17 Requesting physician: JOSAFAT RODRIGUEZ Reason for Consult: syncope vs seizure Chief complaint: syncope, hx of seizures History of present illness: This 77-year-old right-handed -Cypriot female is a poor historian but confirms she has had a history of seizures and perhaps having been on Keppra. Notes indicate she apparently was not on it currently. She recalls an ambulance coming to get her after parent leading waking up on the floor at 7 AM. Past History Past Medical History: arthritis, diabetes, GERD, hypertension, hyperlipidemia, seizures, other (TIA; dementia) Social history: lives with family, smoking (former), other. denies: alcohol abuse, prescription drug abuse, IV drug use (says she gave up illicit drugs but can't really tell me which ones she used in the past and cannot remember what kind of work she used to do) Family history: hypertension (not sure if any hypertension), stroke (father she thinks had a stroke). denies: other (no epilepsy) Medications and Allergies Allergies Allergy/AdvReac Type Severity Reaction Status Date / Time shellfish derived Allergy Nausea Verified 02/05/14 15:17 Home Medications Medication Instructions Recorded Confirmed Last Taken Type Hydrochlorothiazide 25 mg PO DAILY 11/27/13 08/02/17 05/06/16 History Lisinopril [Zestril] 40 mg PO DAILY 11/27/13 08/02/17 05/06/16 History Memantine HCl [Namenda] 10 mg PO BID 11/27/13 08/02/17 05/06/16 History Oxybutynin [Ditropan] 10 mg PO BID 11/27/13 08/02/17 05/06/16 History Simvastatin 10 mg PO QHS 11/27/13 08/02/17 05/06/16 History metFORMIN [Glucophage] 500 mg PO BID 01/05/14 08/02/17 05/06/16 History Metoprolol Succinate [Toprol Xl] 50 mg PO QDAY 08/02/17 08/02/17 Unknown History levETIRAcetam [Keppra TAB] 1,500 mg PO BID 08/02/17 08/02/17 Unknown History Active Meds: Active Medications Acetaminophen (Tylenol) 650 mg PO Q4H PRN PRN Reason: Pain MILD(1-3)/Fever >100.5/CALLE Amlodipine Besylate (Norvasc) 10 mg PO QDAY [facility] Last Admin: 08/02/17 13:00 Dose: 10 mg Ascorbic Acid (Vitamin C) 500 mg PO QDAY [facility] Last Admin: 08/02/17 13:00 Dose: 500 mg Calcium Carbonate/Glycine (Oscal) 1,250 mg PO QDAY [facility] Last Admin: 08/02/17 13:00 Dose: 1,250 mg Cholecalciferol (Vitamin D3) 400 unit PO BID [facility] Last Admin: 08/02/17 13:00 Dose: 400 unit Enoxaparin Sodium (Lovenox) 40 mg SUB-Q QDAY@2200 [facility] Hydralazine HCl (Apresoline) 10 mg IV Q4HR PRN PRN Reason: BP >160/100 Hydrochlorothiazide (Hctz) 25 mg PO DAILY [facility] Last Admin: 08/02/17 13:00 Dose: 25 mg Levetiracetam 1,500 mg/ Sodium (Chloride) 115 mls @ 400 mls/hr IV NOW [facility] Last Admin: 08/02/17 16:47 Dose: 400 mls/hr Levetiracetam (Keppra) 1,000 mg PO BID [facility] Memantine (Namenda) 10 mg PO BID [facility] Last Admin: 08/02/17 13:00 Dose: 10 mg Metoprolol Succinate (Toprol Xl) 50 mg PO QDAY [facility] Last Admin: 08/02/17 14:16 Dose: 50 mg Ondansetron HCl (Zofran) 4 mg IV Q8H PRN PRN Reason: Nausea And Vomiting Oxybutynin Chloride (Ditropan) 10 mg PO BID [facility] Last Admin: 08/02/17 13:00 Dose: 10 mg Pravastatin Sodium (Pravachol) 20 mg PO QHS [facility] Sodium Chloride (Sodium Chloride Flush Syringe 10 Ml) 10 ml IV BID [facility] Last Admin: 08/02/17 16:30 Dose: 10 ml Sodium Chloride (Sodium Chloride Flush Syringe 10 Ml) 10 ml IV PRN PRN PRN Reason: LINE FLUSH Vitamin E (Vitamin E Cap) 400 unit PO QDAY [facility] Last Admin: 08/02/17 13:00 Dose: 400 unit Review of Systems All systems: negative (no headaches but some dizziness but no snoring.) Physical Examination - Vital Signs Vital Signs: Vital Signs Pulse Ox 100 08/02/17 06:19 - Physical Exam Narrative exam: General Appearance: well developed and borderline overweight (per BMI) 870s -Cypriot female in NAD. HEENT: atraumatic, normocephalic; no bruits, 2+ Jose Cruz without soreness or induration or enlargement, sclerae nonicteric. Oropharynx pink and moist. Neck: supple, no bruits. Heart: no murmur heard but sounds are distant. Extremities: no clubbing, cyanosis or edema. 2+ dorsalis pedis pulses bilaterally. Neurologic Exam: Mental Status: Awake, alert, oriented to winter after multiple choice among seasons, nose by multiple choice that she is at a hospital, cannot give the year or even after 1999 as prompt and cannot give day of week or month, speech is clear, names pen but not tip of pen though gives glasses and their lenses, and abstracts well. Names President after first name prompt but not Acetylene Operator, serial 7's cannot be done and cannot do 5+7, has right-left confusion , gets 0 of 3 objects at 3 minutes, spells WORLD forwards correctly but cannot do it backwards. Cranial Nerves: glover full, no papilledema, SVPs present, PERRLA but seems to have a cataract on the left, EOMs full without nystagmus or diplopia, facial sensation intact to pinprick and light touch, no facial weakness, Martínez is midline, palate rises symmetrically to phonation OR gags are positive, shoulder shrug is 5 X 2, tongue protrudes midline. Cerebellar: finger to nose off target bilaterally without tremor, heel to abreu is normal. Sensory: intact to light touch, pinprick, and vibrations. Double simultaneous stimulation is intact. Motor Exam Upper Extremities: no drift or pronation, Julito intact. Installation & Maintenance Executive are 4- X 2, tone is normal. No atrophy or fasciculations are noted visually. Motor Exam Lower Extremities: No leg lag; quadriceps, anterior tibials and gastrocnemius are 5 bilaterally. Julito intact. Tone is normal. No atrophy or fasciculations are noted visually. Reflexes: Palmomental, snout and jaw jerk are negative. Triceps, biceps, and brachioradialis are trace bilaterally. Fernando's is negative bilaterally. Knee jerks and ankle jerks are 0 bilaterally even with reinforcement and without clonus. Toes are downgoing bilaterally to Babinski testing. Results - Laboratory Findings CBC and BMP: 08/02/17 07:11 08/02/17 07:04 Abnormal Lab Findings: Abnormal Labs 08/02/17 08/02/17 07:04 07:11 Monocytes % (Manual) 9.0 H Lymphocytes # (Manual) 1.1 L Potassium 5.2 H BUN 28 H Creatinine 1.3 H Glucose 179 H Assessment and Plan Impression: 1. Syncope 2. History of seizure disorder Plan: 1. EEG has been ordered. On later review it shows 8-9 Hz alpha activity posteriorly which is normal but some mild slowing of the background and other times suggesting a diffuse process and metabolic encephalopathy. No epileptiform activity was seen. 2. I sent a levetiracetam level but that will take several days to come back. I increased her levetiracetam maintenance dose and gave her a bolus as well. She should be able to be discharged in the morning. Will sign off. 45 minutes spent with this patient. Thank you for an interesting consultation on this pleasant elderly lady.
[2017-08-02] MEDS ORDERED: NON-FORMULARY (Simvastatin [Simvastatin] 10 MG) PO SCH (22:00)
[2017-08-02] MEDS: PRAVACHOL PO SCH (22:40)
[2017-08-02] MEDS: LOVENOX SUB-Q SCH (23:40)
[2017-08-02] MEDS: KEPPRA PO SCH (23:40)
[2017-08-03] MEDS: DITROPAN PO SCH ×3 (01:58→22:00)
[2017-08-03] MEDS: SODIUM CHLORIDE FLUSH SYRINGE 10 ML IV SCH ×3 (01:59→23:06)
[2017-08-03] MEDS: VITAMIN D3 PO SCH ×3 (01:59→22:00)
[2017-08-03] MEDS ORDERED: KIONEX PO ONE (02:00)
[2017-08-03] MEDS ORDERED: LEXISCAN IV ONE ×2 (08:03→08:18)
[2017-08-03] MEDS ORDERED: ATIVAN ONE (08:03)
[2017-08-03] MEDS: KEPPRA PO SCH ×2 (11:31→23:06)
[2017-08-03] MEDS: VITAMIN C PO SCH (11:31)
[2017-08-03] MEDS: NAMENDA PO SCH ×2 (11:32→23:07)
[2017-08-03] MEDS: NORVASC PO SCH (11:33)
[2017-08-03] MEDS: OSCAL PO SCH (11:34)
[2017-08-03] MEDS: VITAMIN E CAP PO SCH (11:34)
[2017-08-03] MEDS: HCTZ PO SCH (11:35)
[2017-08-03] MEDS: TOPROL XL PO SCH (11:41)
--- NOTE | 2017-08-03 12:16 | Progress Note ---
Assessment and Plan Tith her current confused mental state, she probably will not be able to cooperate for stress testing. Await echocardiogram. - Patient Problems (1) Pre-syncope Current Visit: Yes Status: Acute (2) Altered mental status Current Visit: Yes Status: Acute (3) Hypertension Current Visit: Yes Status: Chronic Qualifiers: Hypertension type: essential hypertension Qualified Code(s): I10 - Essential (primary) hypertension (4) Diabetes mellitus Current Visit: Yes Status: Chronic Qualifiers: Diabetes mellitus type: type 2 (5) Dementia Current Visit: Yes Status: Chronic Subjective Date of service: 08/03/17 Principal diagnosis: Presyncope, HTN, DM, Dementia Interval history: The patient was taken to the stress lab for Lexiscan stress MPI this morning. However, she became confused and was just moaning without response to questions. She had declined being placed on the nuclear scan table. She was then transferred back to her room. A couple of hours later in her room, the patient was fully awake, calm, and communicative, but confused. Objective Vital Signs Last Vital Signs Temp 98.2 F 08/03/17 08:11 Pulse 72 08/03/17 11:41 Resp 18 08/03/17 08:11 BP 142/77 08/03/17 11:41 Pulse Ox 99 08/03/17 08:11 - Physical Examination General: No Apparent Distress HEENT: Positive: EOMI, Normocephaly, Mucus Membranes Moist Neck: Positive: neck supple, trachea midline Cardiac: Positive: Reg Rate and Rhythm, S1/S2 Lungs: Positive: clear to auscultation Neuro: Positive: Grossly Intact, Cranial Nerve 2-12 Intact Abdomen: Positive: Soft, Active Bowel Sounds. Negative: Tender Skin: Positive: Clear. Negative: Rash Musculoskeletal: Normal Range of Motion Extremities: Absent: edema - Imaging and Cardiology EKG: image reviewed Echo: pending - Telemetry EKG Rhythm: Sinus Rhythm - EKG Sinus rhythms and dysrhythmias: sinus rhythm Myocardial infarction: septal MS (old age or ind, anterior MS (old age or i
[2017-08-03] MEDS ORDERED: ATIVAN IV NR (15:15)
--- NOTE | 2017-08-03 19:13 | Progress Note ---
Assessment and Plan Assessment and plan: 77-year-old woman admitted for syncope and Syncope; troponin negative, echo shows EF 35%, obtain MPI,, hold Lyrica and Exelon as he might have led to syncope Systolic chf, euvolemic, stable Hyperkalemia; may be related to SANJIV inhibitor, held SANJIV inhibitor, sp Kayexalate JEANNE upon Chronic kidney disease stage II to 3; avoid nephrotoxins, ivf, renal us , renal consult, Alzheimer's dementia; supportive care Hypertensive urgency : Optimize BP medications Tachycardia, ekg shows sinus rythym, no further workup Hospitalist Physical - Constitutional Vitals: Temp Pulse Resp BP Pulse Ox 98.5 F 76 20 118/60 97 08/03/17 15:27 08/03/17 15:27 08/03/17 15:27 08/03/17 15:27 08/03/17 15:27 General appearance: Present: no acute distress - EENT Eyes: Present: PERRL ENT: hearing intact - Neck Neck: Present: supple - Respiratory Respiratory effort: normal Respiratory: bilateral: CTA - Cardiovascular Rhythm: regular Heart Sounds: Present: S1 & S2 - Extremities Extremities: no ischemia Peripheral Pulses: within normal limits - Abdominal General gastrointestinal: soft, non-tender, non-distended, normal bowel sounds - Integumentary Integumentary: Present: clear, warm, dry - Psychiatric Psychiatric: appropriate mood/affect, no intact judgment & insight (oriented x1 , demented) - Neurologic Neurologic: CNII-XII intact, focal deficits, moves all extremities Results - Labs CBC & Chem 7: 08/02/17 07:11 08/08/17 06:06 Labs: Laboratory Last Values WBC 4.5 K/mm3 (4.5-11.0) 08/02/17 07:11 RBC 4.04 M/mm3 (3.65-5.03) 08/02/17 07:11 Hgb 11.4 gm/dl (10.1-14.3) 08/02/17 07:11 Hct 35.4 % (30.3-42.9) 08/02/17 07:11 MCV 88 fl (79-97) 08/02/17 07:11 MCH 28 pg (28-32) 08/02/17 07:11 MCHC 32 % (30-34) 08/02/17 07:11 RDW 14.2 % (13.2-15.2) 08/02/17 07:11 Plt Count 191 K/mm3 (140-440) 08/02/17 07:11 Add Manual Diff Complete 08/02/17 07:11 Total Counted 100 08/02/17 07:11 Seg Neuts % (Manual) 66.0 % (40.0-70.0) 08/02/17 07:11 Band Neutrophils % 0 % 08/02/17 07:11 Lymphocytes % (Manual) 24.0 % (13.4-35.0) 08/02/17 07:11 Reactive Lymphs % (Man) 0 % 08/02/17 07:11 Monocytes % (Manual) 9.0 % (0.0-7.3) H 08/02/17 07:11 Eosinophils % (Manual) 1.0 % (0.0-4.3) 08/02/17 07:11 Basophils % (Manual) 0 % (0.0-1.8) 08/02/17 07:11 Metamyelocytes % 0 % 08/02/17 07:11 Myelocytes % 0 % 08/02/17 07:11 Promyelocytes % 0 % 08/02/17 07:11 Blast Cells % 0 % 08/02/17 07:11 Nucleated RBC % Not Reportable 08/02/17 07:11 Seg Neutrophils # Man 3.0 K/mm3 (1.8-7.7) 08/02/17 07:11 Band Neutrophils # 0.0 K/mm3 08/02/17 07:11 Lymphocytes # (Manual) 1.1 K/mm3 (1.2-5.4) L 08/02/17 07:11 Abs React Lymphs (Man) 0.0 K/mm3 08/02/17 07:11 Monocytes # (Manual) 0.4 K/mm3 (0.0-0.8) 08/02/17 07:11 Eosinophils # (Manual) 0.0 K/mm3 (0.0-0.4) 08/02/17 07:11 Basophils # (Manual) 0.0 K/mm3 (0.0-0.1) 08/02/17 07:11 Metamyelocytes # 0.0 K/mm3 08/02/17 07:11 Myelocytes # 0.0 K/mm3 08/02/17 07:11 Promyelocytes # 0.0 K/mm3 08/02/17 07:11 Blast Cells # 0.0 K/mm3 08/02/17 07:11 WBC Morphology Not Reportable 08/02/17 07:11 Hypersegmented Neuts Not Reportable 08/02/17 07:11 Hyposegmented Neuts Not Reportable 08/02/17 07:11 Hypogranular Neuts Not Reportable 08/02/17 07:11 Smudge Cells Not Reportable 08/02/17 07:11 Toxic Granulation Not Reportable 08/02/17 07:11 Toxic Vacuolation Not Reportable 08/02/17 07:11 Dohle Bodies Not Reportable 08/02/17 07:11 Pelger-Huet Anomaly Not Reportable 08/02/17 07:11 Lisy Rods Not Reportable 08/02/17 07:11 Platelet Estimate Appears normal 08/02/17 07:11 Clumped Platelets Not Reportable 08/02/17 07:11 Plt Clumps, EDTA Not Reportable 08/02/17 07:11 Large Platelets Not Reportable 08/02/17 07:11 Giant Platelets Not Reportable 08/02/17 07:11 Platelet Satelliting Not Reportable 08/02/17 07:11 Plt Morphology Comment Not Reportable 08/02/17 07:11 RBC Morphology Not Reportable 08/02/17 07:11 Dimorphic RBCs Not Reportable 08/02/17 07:11 Polychromasia Not Reportable 08/02/17 07:11 Hypochromasia Not Reportable 08/02/17 07:11 Poikilocytosis Not Reportable 08/02/17 07:11 Anisocytosis Not Reportable 08/02/17 07:11 Microcytosis Not Reportable 08/02/17 07:11 Macrocytosis Not Reportable 08/02/17 07:11 Spherocytes Not Reportable 08/02/17 07:11 Pappenheimer Bodies Not Reportable 08/02/17 07:11 Sickle Cells Not Reportable 08/02/17 07:11 Target Cells Not Reportable 08/02/17 07:11 Tear Drop Cells Not Reportable 08/02/17 07:11 Ovalocytes Not Reportable 08/02/17 07:11 Helmet Cells Not Reportable 08/02/17 07:11 [place] Bodies Not Reportable 08/02/17 07:11 [place] Rings Not Reportable 08/02/17 07:11 Carlo Cells Not Reportable 08/02/17 07:11 Bite Cells Not Reportable 08/02/17 07:11 Crenated Cell Not Reportable 08/02/17 07:11 Elliptocytes Not Reportable 08/02/17 07:11 Acanthocytes (Spur) Not Reportable 08/02/17 07:11 Rouleaux Not Reportable 08/02/17 07:11 Hemoglobin C Crystals Not Reportable 08/02/17 07:11 Schistocytes Not Reportable 08/02/17 07:11 Malaria parasites Not Reportable 08/02/17 07:11 Ankit Bodies Not Reportable 08/02/17 07:11 Hem Pathologist Commnt No 08/02/17 07:11 Sodium 143 mmol/L (137-145) 08/03/17 17:10 Potassium 4.5 mmol/L (3.6-5.0) 08/03/17 17:10 Chloride 102.5 mmol/L (98-107) 08/03/17 17:10 Carbon Dioxide 28 mmol/L (22-30) 08/03/17 17:10 Anion Gap 17 mmol/L 08/03/17 17:10 BUN 20 mg/dL (7-17) H 08/03/17 17:10 Creatinine 1.3 mg/dL (0.7-1.2) H 08/03/17 17:10 Estimated GFR 48 ml/min 08/03/17 17:10 BUN/Creatinine Ratio 15 % 08/03/17 17:10 Glucose 132 mg/dL (65-100) H 08/03/17 17:10 Calcium 10.0 mg/dL (8.4-10.2) 08/03/17 17:10 Total Bilirubin < 0.20 mg/dL (0.1-1.2) 08/02/17 07:04 AST 18 units/L (5-40) 08/02/17 07:04 ALT 13 units/L (7-56) 08/02/17 07:04 Alkaline Phosphatase 85 units/L (35-129) 08/02/17 07:04 Total Creatine Kinase 86 units/L (30-135) 08/03/17 17:10 CK-MB (CK-2) 2.0 ng/mL (0.0-4.0) 08/03/17 17:10 CK-MB (CK-2) Rel Index 2.3 (0-4) 08/03/17 17:10 Troponin T 0.010 ng/mL (0.00-0.029) 08/03/17 17:10 NT-Pro-B Natriuret Pep 75.99 pg/mL (0-900) 08/02/17 07:04 Total Protein 7.6 g/dL (6.3-8.2) 08/02/17 07:04 Albumin 4.1 g/dL (3.9-5) 08/02/17 07:04 Albumin/Globulin Ratio 1.2 % 08/02/17 07:04 Urine Color Straw (Yellow) 08/02/17 13:35 Urine Turbidity Clear (Clear) 08/02/17 13:35 Urine pH 7.0 (5.0-7.0) 08/02/17 13:35 Ur Specific [place] 1.010 (1.003-1.030) 08/02/17 13:35 Urine Protein <15 mg/dl mg/dL (Negative) 08/02/17 13:35 Urine Glucose (UA) Neg mg/dL (Negative) 08/02/17 13:35 Urine Ketones Neg mg/dL (Negative) 08/02/17 13:35 Urine Blood Neg (Negative) 08/02/17 13:35 Urine Nitrite Neg (Negative) 08/02/17 13:35 Urine Bilirubin Neg (Negative) 08/02/17 13:35 Urine Urobilinogen < 2.0 mg/dL (<2.0) 08/02/17 13:35 Ur Leukocyte Esterase Neg (Negative) 08/02/17 13:35 Urine WBC (Auto) 2.0 /HPF (0.0-6.0) 08/02/17 13:35 Urine RBC (Auto) 2.0 /HPF (0.0-6.0) 08/02/17 13:35 U Epithel Cells (Auto) 1.0 /HPF (0-13.0) 08/02/17 13:35 Urine Bacteria (Auto) 1+ /HPF (Negative) 08/02/17 13:35 Urine Mucus Few /HPF 08/02/17 13:35 Urine Opiates Screen Presumptive negative 08/02/17 13:35 Urine Methadone Screen Presumptive negative 08/02/17 13:35 Ur Barbiturates Screen Presumptive negative 08/02/17 13:35 Ur Phencyclidine Scrn Presumptive negative 08/02/17 13:35 Ur Amphetamines Screen Presumptive negative 08/02/17 13:35 U Benzodiazepines Scrn Presumptive negative 08/02/17 13:35 Urine Cocaine Screen Presumptive negative 08/02/17 13:35 U Marijuana (THC) Screen Presumptive negative 08/02/17 13:35 Drugs of Abuse Note Disclamer 08/02/17 13:35
[2017-08-03] MEDS: LOVENOX SUB-Q SCH (23:06)
[2017-08-03] MEDS: PRAVACHOL PO SCH (23:07)
[2017-08-04] MEDS ORDERED: NORVASC PO SCH (09:19)
[2017-08-04] MEDS: NAMENDA PO SCH ×2 (11:40→21:35)
[2017-08-04] MEDS: KEPPRA PO SCH ×2 (11:40→21:35)
[2017-08-04] MEDS: TOPROL XL PO SCH (11:41)
[2017-08-04] MEDS: VITAMIN C PO SCH (11:41)
[2017-08-04] MEDS: ZESTRIL PO SCH (11:41)
[2017-08-04] MEDS: NORVASC PO SCH (11:42)
[2017-08-04] MEDS: HCTZ PO SCH (11:42)
[2017-08-04] MEDS: OSCAL PO SCH (11:42)
[2017-08-04] MEDS: DITROPAN PO SCH ×2 (11:42→21:35)
[2017-08-04] MEDS: VITAMIN E CAP PO SCH (11:42)
[2017-08-04] MEDS: VITAMIN D3 PO SCH ×2 (11:43→21:35)
[2017-08-04] MEDS: SODIUM CHLORIDE FLUSH SYRINGE 10 ML IV SCH ×2 (11:43→21:36)
--- NOTE | 2017-08-04 12:17 | Progress Note ---
Assessment and Plan In view of her cardiomyopathy, if she can cooperate Lexiscan stress MPI in the a.m., will attempt again. If not, will not pursue any ischemic evaluation. Will SANJIV inhibitor to her regimen. - Patient Problems (1) Pre-syncope Current Visit: Yes Status: Acute (2) Cardiomyopathy Current Visit: Yes Status: Acute Qualifiers: Cardiomyopathy type: other Qualified Code(s): I42.8 - Other cardiomyopathies (3) Altered mental status Current Visit: Yes Status: Acute (4) Hypertension Current Visit: Yes Status: Chronic Qualifiers: Hypertension type: essential hypertension Qualified Code(s): I10 - Essential (primary) hypertension (5) Diabetes mellitus Current Visit: Yes Status: Chronic Qualifiers: Diabetes mellitus type: type 2 (6) Dementia Current Visit: Yes Status: Chronic Subjective Principal diagnosis: Presyncope, HTN, Cardiomyopathy, DM, Dementia Interval history: She is calm and cooperative this morning, but remains confused. Objective Vital Signs Temp Pulse Pulse Resp BP Pulse Ox 08/04/17 11:42 66 123/64 08/04/17 11:41 66 123/64 08/04/17 07:28 97.5 F L 67 18 153/75 95 08/04/17 06:50 97.6 F 70 20 123/72 98 08/03/17 23:12 98.5 F 74 20 146/72 95 08/03/17 22:00 76 16 08/03/17 15:27 98.5 F 76 20 118/60 97 - Physical Examination General: No Apparent Distress HEENT: Positive: EOMI, Normocephaly, Mucus Membranes Moist Neck: Positive: neck supple, trachea midline Cardiac: Positive: Reg Rate and Rhythm, S1/S2 Lungs: Positive: clear to auscultation Neuro: Positive: Other (confused) Abdomen: Positive: Soft, Active Bowel Sounds. Negative: Tender Skin: Positive: Clear. Negative: Rash Musculoskeletal: Normal Range of Motion Extremities: Absent: edema - Labs and Meds Cardiac Enzymes 08/03/17 Range/Units 17:10 CK-MB (CK-2) 2.0 (0.0-4.0) ng/mL Comprehensive Metabolic Panel 08/03/17 Range/Units 17:10 Sodium 143 (137-145) mmol/L Potassium 4.5 (3.6-5.0) mmol/L Chloride 102.5 (98-107) mmol/L Carbon Dioxide 28 (22-30) mmol/L BUN 20 H (7-17) mg/dL Creatinine 1.3 H (0.7-1.2) mg/dL Glucose 132 H (65-100) mg/dL Calcium 10.0 (8.4-10.2) mg/dL - Imaging and Cardiology EKG: image reviewed Echo: pending - EKG Sinus rhythms and dysrhythmias: sinus rhythm Myocardial infarction: septal IA (old age or ind, anterior IA (old age or i
[2017-08-04] MEDS: LOVENOX SUB-Q SCH (21:30)
[2017-08-04] MEDS: PRAVACHOL PO SCH (21:35)
[2017-08-05] MEDS ORDERED: ATIVAN IV NR (00:15)
[2017-08-05 06:39] LABS: Calcium 9.2 mg/dL (8.4-10.2)
[2017-08-05] MEDS: SODIUM CHLORIDE FLUSH SYRINGE 10 ML IV SCH ×2 (10:00→22:00)
[2017-08-05] MEDS: VITAMIN C PO SCH (10:00)
[2017-08-05] MEDS: KEPPRA PO SCH ×2 (10:00→22:26)
[2017-08-05] MEDS: VITAMIN D3 PO SCH (10:00)
[2017-08-05] MEDS: DITROPAN PO SCH ×2 (10:00→22:26)
[2017-08-05] MEDS: TOPROL XL PO SCH (10:00)
[2017-08-05] MEDS: OSCAL PO SCH (10:00)
[2017-08-05] MEDS: NORVASC PO SCH (10:00)
[2017-08-05] MEDS: NAMENDA PO SCH ×2 (10:00→22:00)
[2017-08-05] MEDS: VITAMIN E CAP PO SCH (10:00)
[2017-08-05] MEDS: ZESTRIL PO SCH (10:00)
[2017-08-05] MEDS ORDERED: LEXISCAN IV ONE (10:23)
--- NOTE | 2017-08-05 10:45 | Progress Note ---
Assessment and Plan D/c HCTZ. No ACEI/ARB at this time in setting of renal insufficiency. Proceed with lexiscan MPI stress test. Await findings. The patient has been seen in conjunction with Dr. Mireles who agrees with the assessment and plan of care. - Patient Problems (1) Pre-syncope Current Visit: Yes Status: Acute (2) Cardiomyopathy Current Visit: Yes Status: Acute Qualifiers: Cardiomyopathy type: other Qualified Code(s): I42.8 - Other cardiomyopathies (3) Altered mental status Current Visit: Yes Status: Acute (4) Acute kidney injury Current Visit: Yes Status: Acute (5) Diabetes mellitus Current Visit: Yes Status: Chronic Qualifiers: Diabetes mellitus type: type 2 (6) Hypertension Current Visit: Yes Status: Chronic Qualifiers: Hypertension type: essential hypertension Qualified Code(s): I10 - Essential (primary) hypertension (7) Dementia Current Visit: Yes Status: Chronic Subjective Date of service: 08/05/17 Principal diagnosis: Presyncope, HTN, Cardiomyopathy, DM, Dementia Interval history: pt with no current cardiac complaints. for stress test today. Objective Last Vital Signs Temp 98.2 F 08/05/17 07:42 Pulse 66 08/05/17 07:42 Resp 20 08/05/17 07:42 BP 110/53 08/05/17 07:42 Pulse Ox 96 08/05/17 07:42 - Physical Examination General: No Apparent Distress HEENT: Positive: EOMI, Normocephaly, Mucus Membranes Moist Neck: Positive: neck supple, trachea midline Cardiac: Positive: Reg Rate and Rhythm, S1/S2 Lungs: Positive: clear to auscultation Neuro: Positive: Other (confused) Abdomen: Positive: Soft, Active Bowel Sounds. Negative: Tender Skin: Positive: Clear. Negative: Rash Musculoskeletal: Normal Range of Motion Extremities: Absent: edema - Labs and Meds Comprehensive Metabolic Panel 08/05/17 Range/Units 06:05 Sodium 141 (137-145) mmol/L Potassium 4.6 (3.6-5.0) mmol/L Chloride 102.2 (98-107) mmol/L Carbon Dioxide 26 (22-30) mmol/L BUN 25 H (7-17) mg/dL Creatinine 1.7 H (0.7-1.2) mg/dL Glucose 156 H (65-100) mg/dL Calcium 9.2 (8.4-10.2) mg/dL - Imaging and Cardiology EKG: image reviewed Echo: pending - EKG Sinus rhythms and dysrhythmias: sinus rhythm Myocardial infarction: septal [place] (old age or ind, anterior [place] (old age or i
--- NOTE | 2017-08-05 11:41 | Treadmill Report ---
REASON FOR STUDY: Cardiomyopathy. STRESS TEST PROTOCOL: The patient received 0.4 mg of Lexiscan intravenously over 10 seconds. Technetium-99m tetrofosmin was subsequently injected. Baseline EKG, normal sinus rhythm. Lexiscan EKG, no diagnostic ischemic changes. No chest pain. No arrhythmias. IMPRESSION: Electrocardiographically negative stress test. Nuclear imaging report to follow. JOB# [id number] GUERRERO/CHELSEA
[2017-08-05] MEDS ORDERED: NACL 0.45% 1000 ML 1,000 ML IV SCH (13:00)
--- NOTE | 2017-08-05 13:43 | Event Note ---
Date: 08/05/17 Lexiscan MPI stress test this AM was negative for ischemia. Currently stable cardiac status. Pt may discharge home from cardiology standpoint. Recommend follow up in our office with Dr. Arias within 2 weeks of hospital discharge ([phone]). Nasim ARGUETA NP / DR. SMILEY
--- NOTE | 2017-08-05 22:01 | Treadmill Report ---
THALLIUM REPORT REASON FOR STUDY: Chest pain. IMAGING PROTOCOL: The patient received Tc-99m tetrofosmin for stress and rest imaging. Imaging for all procedures was completed 30-90 minutes following the initial injection of Technetium 99m Tetrofosmin. SPECT imaging in the 180 degree arc was performed in the right anterior oblique projection. Computerized reconstruction of the images was performed for analysis. NUCLEAR IMAGING RESULTS: Technically limited study due to soft tissue attenuation artifact. Normal left ventricular cavity size with no change from stress to rest. Distribution of radionuclide within the left ventricle revealed a small to medium size area of photo-induction involving the inferior and inferoapical region. The degree of photo-induction is moderate. Rest imaging does not show any significant improvement in this defect. Gated SPECT imaging revealed normal global LV systolic function with septal hypokinesis. The calculated left ventricular ejection fraction is 60%. IMPRESSION: Technically limited study. Small to medium sized fixed inferior and inferoapical defect. Normal global LV systolic function with septal hypokinesis. EF 60%. These findings suggest prior infarction in the right coronary artery territory. No evidence of significant stress-induced ischemia. JOB# [id number] GUERRERO/CHELSEA KUO
[2017-08-05] MEDS: LOVENOX SUB-Q SCH (22:27)
[2017-08-05] MEDS: PRAVACHOL PO SCH (22:28)
[2017-08-06 05:14] LABS: Calcium 8.9 mg/dL (8.4-10.2)
[2017-08-06] MEDS: DITROPAN PO SCH ×2 (09:23→22:51)
[2017-08-06] MEDS: ZESTRIL PO SCH (09:23)
[2017-08-06] MEDS: NORVASC PO SCH (09:24)
[2017-08-06] MEDS: OSCAL PO SCH (09:24)
[2017-08-06] MEDS: VITAMIN C PO SCH (09:24)
[2017-08-06] MEDS: KEPPRA PO SCH ×2 (09:24→22:51)
[2017-08-06] MEDS: VITAMIN D3 PO SCH ×2 (09:25→22:52)
[2017-08-06] MEDS: SODIUM CHLORIDE FLUSH SYRINGE 10 ML IV SCH ×2 (09:27→09:29)
[2017-08-06] MEDS: NAMENDA PO SCH ×2 (09:30→22:51)
[2017-08-06] MEDS: VITAMIN E CAP PO SCH (09:31)
[2017-08-06] MEDS: TOPROL XL PO SCH (09:32)
--- NOTE | 2017-08-06 16:41 | Progress Note ---
Assessment and Plan Assessment and plan: 77-year-old woman admitted for syncope and Transient autonomic imbalance/ Syncope; troponin negative, echo shows EF 35%, MPI neg, likely vasovagal,, hold Lyrica and Exelon as he might have led to syncope Systolic chf, euvolemic, stable Hyperkalemia; may be related to SANJIV inhibitor, held SANJIV inhibitor, sp Kayexalate JEANNE upon Chronic kidney disease stage II to 3; avoid nephrotoxins, ivf, renal us shows only medical renal disease with no hydronephrosis, renal consult appreciated Alzheimer's dementia; supportive care Hypertensive urgency : Optimize BP medications Tachycardia, ekg shows sinus rythym, no further workup History Interval history: no cp, no sob, no fever, no vomiting, no seizure, no fever no further episodes of syncope Hospitalist Physical - Physical exam Narrative exam: General appearance: Present: no acute distress - EENT Eyes: Present: PERRL ENT: hearing intact - Neck Neck: Present: supple - Respiratory Respiratory effort: normal Respiratory: bilateral: CTA - Cardiovascular Rhythm: regular Heart Sounds: Present: S1 & S2 - Extremities Extremities: no ischemia Peripheral Pulses: within normal limits - Abdominal General gastrointestinal: soft, non-tender, non-distended, normal bowel sounds - Integumentary Integumentary: Present: clear, warm, dry - Psychiatric Psychiatric: appropriate mood/affect, no intact judgment & insight (oriented x1 , demented) - Neurologic Neurologic: CNII-XII intact, focal deficits, moves all extremities - Constitutional Vitals: Temp Pulse Resp BP Pulse Ox 98.5 F 73 18 136/67 95 08/06/17 08:21 08/06/17 08:21 08/06/17 08:21 08/06/17 08:21 08/06/17 08:21 General appearance: Present: no acute distress Results - Labs CBC & Chem 7: 08/02/17 07:11 08/08/17 06:06 Labs: Laboratory Last Values WBC 4.5 K/mm3 (4.5-11.0) 08/02/17 07:11 RBC 4.04 M/mm3 (3.65-5.03) 08/02/17 07:11 Hgb 11.4 gm/dl (10.1-14.3) 08/02/17 07:11 Hct 35.4 % (30.3-42.9) 08/02/17 07:11 MCV 88 fl (79-97) 08/02/17 07:11 MCH 28 pg (28-32) 08/02/17 07:11 MCHC 32 % (30-34) 08/02/17 07:11 RDW 14.2 % (13.2-15.2) 08/02/17 07:11 Plt Count 191 K/mm3 (140-440) 08/02/17 07:11 Add Manual Diff Complete 08/02/17 07:11 Total Counted 100 08/02/17 07:11 Seg Neuts % (Manual) 66.0 % (40.0-70.0) 08/02/17 07:11 Band Neutrophils % 0 % 08/02/17 07:11 Lymphocytes % (Manual) 24.0 % (13.4-35.0) 08/02/17 07:11 Reactive Lymphs % (Man) 0 % 08/02/17 07:11 Monocytes % (Manual) 9.0 % (0.0-7.3) H 08/02/17 07:11 Eosinophils % (Manual) 1.0 % (0.0-4.3) 08/02/17 07:11 Basophils % (Manual) 0 % (0.0-1.8) 08/02/17 07:11 Metamyelocytes % 0 % 08/02/17 07:11 Myelocytes % 0 % 08/02/17 07:11 Promyelocytes % 0 % 08/02/17 07:11 Blast Cells % 0 % 08/02/17 07:11 Nucleated RBC % Not Reportable 08/02/17 07:11 Seg Neutrophils # Man 3.0 K/mm3 (1.8-7.7) 08/02/17 07:11 Band Neutrophils # 0.0 K/mm3 08/02/17 07:11 Lymphocytes # (Manual) 1.1 K/mm3 (1.2-5.4) L 08/02/17 07:11 Abs React Lymphs (Man) 0.0 K/mm3 08/02/17 07:11 Monocytes # (Manual) 0.4 K/mm3 (0.0-0.8) 08/02/17 07:11 Eosinophils # (Manual) 0.0 K/mm3 (0.0-0.4) 08/02/17 07:11 Basophils # (Manual) 0.0 K/mm3 (0.0-0.1) 08/02/17 07:11 Metamyelocytes # 0.0 K/mm3 08/02/17 07:11 Myelocytes # 0.0 K/mm3 08/02/17 07:11 Promyelocytes # 0.0 K/mm3 08/02/17 07:11 Blast Cells # 0.0 K/mm3 08/02/17 07:11 WBC Morphology Not Reportable 08/02/17 07:11 Hypersegmented Neuts Not Reportable 08/02/17 07:11 Hyposegmented Neuts Not Reportable 08/02/17 07:11 Hypogranular Neuts Not Reportable 08/02/17 07:11 Smudge Cells Not Reportable 08/02/17 07:11 Toxic Granulation Not Reportable 08/02/17 07:11 Toxic Vacuolation Not Reportable 08/02/17 07:11 Dohle Bodies Not Reportable 08/02/17 07:11 Pelger-Huet Anomaly Not Reportable 08/02/17 07:11 Lisy Rods Not Reportable 08/02/17 07:11 Platelet Estimate Appears normal 08/02/17 07:11 Clumped Platelets Not Reportable 08/02/17 07:11 Plt Clumps, EDTA Not Reportable 08/02/17 07:11 Large Platelets Not Reportable 08/02/17 07:11 Giant Platelets Not Reportable 08/02/17 07:11 Platelet Satelliting Not Reportable 08/02/17 07:11 Plt Morphology Comment Not Reportable 08/02/17 07:11 RBC Morphology Not Reportable 08/02/17 07:11 Dimorphic RBCs Not Reportable 08/02/17 07:11 Polychromasia Not Reportable 08/02/17 07:11 Hypochromasia Not Reportable 08/02/17 07:11 Poikilocytosis Not Reportable 08/02/17 07:11 Anisocytosis Not Reportable 08/02/17 07:11 Microcytosis Not Reportable 08/02/17 07:11 Macrocytosis Not Reportable 08/02/17 07:11 Spherocytes Not Reportable 08/02/17 07:11 Pappenheimer Bodies Not Reportable 08/02/17 07:11 Sickle Cells Not Reportable 08/02/17 07:11 Target Cells Not Reportable 08/02/17 07:11 Tear Drop Cells Not Reportable 08/02/17 07:11 Ovalocytes Not Reportable 08/02/17 07:11 Helmet Cells Not Reportable 08/02/17 07:11 Wade-Tushka Bodies Not Reportable 08/02/17 07:11 Bowman Rings Not Reportable 08/02/17 07:11 Carlo Cells Not Reportable 08/02/17 07:11 Bite Cells Not Reportable 08/02/17 07:11 Crenated Cell Not Reportable 08/02/17 07:11 Elliptocytes Not Reportable 08/02/17 07:11 Acanthocytes (Spur) Not Reportable 08/02/17 07:11 Rouleaux Not Reportable 08/02/17 07:11 Hemoglobin C Crystals Not Reportable 08/02/17 07:11 Schistocytes Not Reportable 08/02/17 07:11 Malaria parasites Not Reportable 08/02/17 07:11 Ankit Bodies Not Reportable 08/02/17 07:11 Hem Pathologist Commnt No 08/02/17 07:11 Sodium 138 mmol/L (137-145) 08/06/17 04:39 Potassium 4.7 mmol/L (3.6-5.0) 08/06/17 04:39 Chloride 99.4 mmol/L (98-107) 08/06/17 04:39 Carbon Dioxide 25 mmol/L (22-30) 08/06/17 04:39 Anion Gap 18 mmol/L 08/06/17 04:39 BUN 32 mg/dL (7-17) H 08/06/17 04:39 Creatinine 1.6 mg/dL (0.7-1.2) H 08/06/17 04:39 Estimated GFR 38 ml/min 08/06/17 04:39 BUN/Creatinine Ratio 20 % 08/06/17 04:39 Glucose 165 mg/dL (65-100) H 08/06/17 04:39 POC Glucose 124 (70-105) H 08/02/17 20:34 Calcium 8.9 mg/dL (8.4-10.2) 08/06/17 04:39 Total Bilirubin < 0.20 mg/dL (0.1-1.2) 08/02/17 07:04 AST 18 units/L (5-40) 08/02/17 07:04 ALT 13 units/L (7-56) 08/02/17 07:04 Alkaline Phosphatase 85 units/L (35-129) 08/02/17 07:04 Total Creatine Kinase 86 units/L (30-135) 08/03/17 17:10 CK-MB (CK-2) 2.0 ng/mL (0.0-4.0) 08/03/17 17:10 CK-MB (CK-2) Rel Index 2.3 (0-4) 08/03/17 17:10 Troponin T 0.010 ng/mL (0.00-0.029) 08/03/17 17:10 NT-Pro-B Natriuret Pep 75.99 pg/mL (0-900) 08/02/17 07:04 Total Protein 7.6 g/dL (6.3-8.2) 08/02/17 07:04 Albumin 4.1 g/dL (3.9-5) 08/02/17 07:04 Albumin/Globulin Ratio 1.2 % 08/02/17 07:04 Urine Color Straw (Yellow) 08/02/17 13:35 Urine Turbidity Clear (Clear) 08/02/17 13:35 Urine pH 7.0 (5.0-7.0) 08/02/17 13:35 Ur Specific [place] 1.010 (1.003-1.030) 08/02/17 13:35 Urine Protein <15 mg/dl mg/dL (Negative) 08/02/17 13:35 Urine Glucose (UA) Neg mg/dL (Negative) 08/02/17 13:35 Urine Ketones Neg mg/dL (Negative) 08/02/17 13:35 Urine Blood Neg (Negative) 08/02/17 13:35 Urine Nitrite Neg (Negative) 08/02/17 13:35 Urine Bilirubin Neg (Negative) 08/02/17 13:35 Urine Urobilinogen < 2.0 mg/dL (<2.0) 08/02/17 13:35 Ur Leukocyte Esterase Neg (Negative) 08/02/17 13:35 Urine WBC (Auto) 2.0 /HPF (0.0-6.0) 08/02/17 13:35 Urine RBC (Auto) 2.0 /HPF (0.0-6.0) 08/02/17 13:35 U Epithel Cells (Auto) 1.0 /HPF (0-13.0) 08/02/17 13:35 Urine Bacteria (Auto) 1+ /HPF (Negative) 08/02/17 13:35 Urine Mucus Few /HPF 08/02/17 13:35 Urine Opiates Screen Presumptive negative 08/02/17 13:35 Urine Methadone Screen Presumptive negative 08/02/17 13:35 Ur Barbiturates Screen Presumptive negative 08/02/17 13:35 Ur Phencyclidine Scrn Presumptive negative 08/02/17 13:35 Ur Amphetamines Screen Presumptive negative 08/02/17 13:35 U Benzodiazepines Scrn Presumptive negative 08/02/17 13:35 Urine Cocaine Screen Presumptive negative 08/02/17 13:35 U Marijuana (THC) Screen Presumptive negative 08/02/17 13:35 Drugs of Abuse Note Disclamer 08/02/17 13:35
--- NOTE | 2017-08-06 17:25 | Ultrasound Report ---
FINAL REPORT EXAM: US RENAL BILAT HISTORY: JEANNE TECHNIQUE: Ultrasound of the kidneys PRIORS: CT a/P 12/25/2015 FINDINGS: Examination of the kidneys demonstrates the left kidney to be normal in size and cortical thickness. Both kidneys have increased cortical echogenicity. The right kidney is small in size. The right and left kidneys measure 9.2 cm and 8.6 cm in craniocaudal length, respectively. No evidence for calculi, hydronephrosis, or solid mass is seen in either kidney. The mid pole anterior laterally of the right kidney, there is a 2.2 x 2.2 x 2.0 cm anechoic thin wall cyst. This corresponds to the low-density exophytic focus seen on prior CT which is similar in size and appearance. There is a smaller adjacent 1.2 x 0.8 x 1.1 cm cyst in the mid upper pole, too small to characterize but appears to have internal debris. This may be mildly complex and corresponds to the small exophytic intermediate density focus on CT. The size is similar. The urinary bladder shows no intraluminal abnormality or wall thickening. IMPRESSION: 1. Right kidney is small in size. 2. Two cysts identified in the mid right kidney. The smaller cyst is too small to characterize but is probably mildly complex corresponding to the intermediate density seen on prior CT. The larger cyst is anechoic and has benign characteristics, stable.
--- NOTE | 2017-08-06 20:22 | Consultation ---
History of Present Illness - Reason for Consult Consult date: 08/06/17 acute renal failure Requesting physician: JOSAFAT RODRIGUEZ - History of Present Illness 77-year-old lady with a history of type II dermatitis, hypertension and stage II /3 chronically disease. Patient was admitted for a near syncopal episode at home. She felt dizzy and almost passed out. There was no loss of consciousness. There was no associated or preceding chest pain, shortness of breath, nausea, vomiting or palpitations. No record of previous episode. On presentation patient was not hypotensive. 2-D echo has been done and ejection fraction was low at 30-35%. In November 2015, ejection fraction was 50-55%. Stress test showed a fixed defect but no reversible ischemia. BUN and creatinine were 28/1.3 mg/dL on presentation but is worsening to 25/1.7 mg/dL yesterday. Today they are 32/1.6 mg/dl. Diuretic HCTZ has been stopped. Patient is on metoprolol and lisinopril. Blood pressure had dropped to as low as 99/63 mmHg yesterday and today had an episode of 91/46mmHg. 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 denies: alcohol abuse, prescription drug abuse, IV drug use (says she gave up illicit drugs but can't really tell me which ones she used in the past and cannot remember what kind of work she used to do) Family history: hypertension (not sure if any hypertension), stroke (father she thinks had a stroke). denies: other (no epilepsy) Medications and Allergies Allergies Allergy/AdvReac Type Severity Reaction Status Date / Time shellfish derived Allergy Nausea Verified 02/05/14 15:17 Home Medications Medication Instructions Recorded Confirmed Last Taken Type Hydrochlorothiazide 25 mg PO DAILY 11/27/13 08/02/17 05/06/16 History Lisinopril [Zestril] 40 mg PO DAILY 11/27/13 08/02/17 05/06/16 History Memantine HCl [Namenda] 10 mg PO BID 11/27/13 08/02/17 05/06/16 History Oxybutynin [Ditropan] 10 mg PO BID 11/27/13 08/02/17 05/06/16 History Simvastatin 10 mg PO QHS 11/27/13 08/02/17 05/06/16 History metFORMIN [Glucophage] 500 mg PO BID 01/05/14 08/02/17 05/06/16 History Metoprolol Succinate [Toprol Xl] 50 mg PO QDAY 08/02/17 08/02/17 Unknown History levETIRAcetam [Keppra TAB] 1,500 mg PO BID 08/02/17 08/02/17 Unknown History Active Meds: Active Medications Acetaminophen (Tylenol) 650 mg PO Q4H PRN PRN Reason: Pain MILD(1-3)/Fever >100.5/CALLE Amlodipine Besylate (Norvasc) 5 mg PO QDAY [facility] Last Admin: 08/06/17 09:24 Dose: 5 mg Ascorbic Acid (Vitamin C) 500 mg PO QDAY [facility] Last Admin: 08/06/17 09:24 Dose: 500 mg Calcium Carbonate/Glycine (Oscal) 1,250 mg PO QDAY [facility] Last Admin: 08/06/17 09:24 Dose: 1,250 mg Cholecalciferol (Vitamin D3) 400 unit PO BID [facility] Last Admin: 08/06/17 09:25 Dose: 400 unit Enoxaparin Sodium (Lovenox) 30 mg SUB-Q QHS [facility] Last Admin: 08/05/17 22:27 Dose: 30 mg Sodium Chloride (Nacl 0.45% 1000 Ml) 1,000 mls @ 125 mls/hr IV DIRECT [facility] Levetiracetam (Keppra) 1,000 mg PO BID [facility] Last Admin: 08/06/17 09:24 Dose: 1,000 mg Lisinopril (Zestril) 20 mg PO QDAY [facility] Last Admin: 08/06/17 09:23 Dose: 20 mg Memantine (Namenda) 10 mg PO BID [facility] Last Admin: 08/06/17 09:30 Dose: 10 mg Metoprolol Succinate (Toprol Xl) 50 mg PO QDAY [facility] Last Admin: 08/06/17 09:32 Dose: 50 mg Ondansetron HCl (Zofran) 4 mg IV Q8H PRN PRN Reason: Nausea And Vomiting Oxybutynin Chloride (Ditropan) 10 mg PO BID [facility] Last Admin: 08/06/17 09:23 Dose: 10 mg Pravastatin Sodium (Pravachol) 20 mg PO QHS [facility] Last Admin: 08/05/17 22:28 Dose: 20 mg Sodium Chloride (Sodium Chloride Flush Syringe 10 Ml) 10 ml IV BID [facility] Last Admin: 08/06/17 09:29 Dose: 10 ml Sodium Chloride (Sodium Chloride Flush Syringe 10 Ml) 10 ml IV PRN PRN PRN Reason: LINE FLUSH Vitamin E (Vitamin E Cap) 400 unit PO QDAY [facility] Last Admin: 08/06/17 09:31 Dose: 400 unit Review of Systems ROS unobtainable: due to mental status Exam - Vital Signs Vital signs: Vital Signs Pulse Ox 100 08/02/17 06:19 - Physical Exam Narrative exam: Elderly -[place] female lying in bed in no acute distress HEENT: NCAT, pink oral mucous membrane Neck: Supple, no venous distention CVS: S1S2 RRR with no murmur, rub or gallop Chest: Clear to auscultation Abdomen: Protuberant, soft, nontender, no organomegaly, bowel sounds are present Extremities: No edema, no clubbing, pigmentary changes Neuro: Awake, alert no focal deficits Results - Lab Results 08/02/17 07:11 08/06/17 04:39 Most recent lab results Calcium 8.9 mg/dL (8.4-10.2) 08/06/17 04:39 Assessment and Plan - Patient Problems (1) Acute kidney injury Current Visit: Yes Status: Acute Plan to address problem: Acute kidney injury Pre-renal azotemia vs acute tubular necrosis secondary to hypotension. Patient had episodes of low blood pressure with consequent worsening renal function. We'll get urine studies and check fractional excretion of sodium. Kidney ultrasound does not show any obstruction. Follow- up electrolytes and renal function in the morning (2) Pre-syncope Current Visit: Yes Status: Acute Plan to address problem: Question secondary to hypotension. Cardiac workup noted (3) Chronic kidney disease, stage III (moderate) Current Visit: Yes Status: Acute Plan to address problem: Chronic kidney disease presumed secondary to diabetic nephropathy/hypertensive nephrosclerosis. (4) Type 2 diabetes mellitus with diabetic nephropathy Current Visit: Yes Status: Acute Plan to address problem: Blood sugar management by primary attending (5) Hypertensive chronic kidney disease with stage 1 through stage 4 chronic kidney disease, or unspecified chronic kidney disease Current Visit: Yes Status: Acute Plan to address problem: Hold lisinopril with the episodes of low blood pressure was in kidney function. May resume at a lower dose when blood pressure is stable and kidney function has improved back to baseline.
[2017-08-06] MEDS: LOVENOX SUB-Q SCH (22:51)
[2017-08-06] MEDS: PRAVACHOL PO SCH (22:51)
[2017-08-07] MEDS: NAMENDA PO SCH ×2 (12:13→23:27)
[2017-08-07] MEDS: VITAMIN E CAP PO SCH (12:13)
[2017-08-07] MEDS: VITAMIN D3 PO SCH ×2 (12:14→23:26)
[2017-08-07] MEDS: KEPPRA PO SCH ×2 (12:15→23:26)
[2017-08-07] MEDS: OSCAL PO SCH (12:16)
[2017-08-07] MEDS: DITROPAN PO SCH ×2 (12:16→23:27)
[2017-08-07] MEDS: TOPROL XL PO SCH (12:16)
[2017-08-07] MEDS: VITAMIN C PO SCH (12:17)
[2017-08-07] MEDS: NORVASC PO SCH (12:17)
[2017-08-07] MEDS: SODIUM CHLORIDE FLUSH SYRINGE 10 ML IV SCH ×3 (12:18→23:32)
--- NOTE | 2017-08-07 12:38 | Progress Note ---
Assessment and Plan - Patient Problems (1) Acute kidney injury Current Visit: Yes Status: Acute Plan to address problem: Acute kidney injury Pre-renal azotemia vs acute tubular necrosis secondary to hypotension. Patient had episodes of low blood pressure with consequent worsening renal function. Follow kidney function today. If improving, patient can be discharged and follow up (2) Pre-syncope Current Visit: Yes Status: Acute Plan to address problem: Question secondary to hypotension. Cardiac workup noted. Blood pressure is stable off of SANJIV inhibitor (3) Chronic kidney disease, stage III (moderate) Current Visit: Yes Status: Acute Plan to address problem: Chronic kidney disease presumed secondary to diabetic nephropathy/hypertensive nephrosclerosis. (4) Type 2 diabetes mellitus with diabetic nephropathy Current Visit: Yes Status: Acute Plan to address problem: Blood sugar management by primary attending (5) Hypertensive chronic kidney disease with stage 1 through stage 4 chronic kidney disease, or unspecified chronic kidney disease Current Visit: Yes Status: Acute Plan to address problem: Hold lisinopril with the episodes of low blood pressure and worsening kidney function. Blood pressure is stable off of SANJIV inhibitor. May resume at a lower dose and then discontinue amlodipine when blood pressure is stable and kidney function has improved back to baseline. This can be done as an outpatient Subjective Date of service: 08/07/17 Principal diagnosis: Presyncope, HTN, Cardiomyopathy, DM, Dementia Interval history: Patient seen lying in bed. She has no new complaints except nausea. She ate all of her meal Objective - Exam Narrative Exam: Elderly -[place] female lying in bed in no acute distress HEENT: NCAT, pink oral mucous membrane Neck: Supple, no venous distention CVS: S1S2 RRR with no murmur, rub or gallop Chest: Clear to auscultation Abdomen: Protuberant, soft, nontender, no organomegaly, bowel sounds are present Extremities: No edema, no clubbing, pigmentary changes Neuro: Awake, alert no focal deficits - Vital Signs Vital signs: Vital Signs - 12hr 08/07/17 08/07/17 08/07/17 08:50 12:16 12:17 Temperature 97.7 F Pulse Rate 67 98 H 98 H Respiratory 19 Rate Blood Pressure 130/66 O2 Sat by Pulse 97 Oximetry - Lab 08/02/17 07:11 08/06/17 04:39 Most recent lab results Calcium 8.9 mg/dL (8.4-10.2) 08/06/17 04:39
[2017-08-07 15:25] LABS: Calcium 8.7 mg/dL (8.4-10.2)
[2017-08-07] MEDS ORDERED: KIONEX PO ONE (16:00)
[2017-08-07] MEDS ORDERED: D50W (25GM) Syringe IV PRN (16:12)
[2017-08-07] MEDS: BENADRYL PO PRN (16:44)
[2017-08-07] MEDS: BUTT PASTE/LIDOCAINE TP SCH ×2 (16:45→23:28)
[2017-08-07] MEDS: HumaLOG SUB-Q SCH ×2 (16:48→23:31)
[2017-08-07] MEDS: LOVENOX SUB-Q SCH (23:26)
[2017-08-07] MEDS: PRAVACHOL PO SCH (23:29)
[2017-08-08] MEDS: HumaLOG SUB-Q SCH ×4 (08:50→23:00)
[2017-08-08] MEDS: VITAMIN C PO SCH (10:01)
[2017-08-08] MEDS: OSCAL PO SCH (10:02)
[2017-08-08] MEDS: VITAMIN D3 PO SCH ×2 (10:02→23:00)
[2017-08-08] MEDS: KEPPRA PO SCH ×2 (10:02→23:00)
[2017-08-08] MEDS: DITROPAN PO SCH ×2 (10:03→23:00)
[2017-08-08] MEDS: VITAMIN E CAP PO SCH (10:03)
[2017-08-08] MEDS: NAMENDA PO SCH ×3 (10:05→23:00)
[2017-08-08] MEDS: NORVASC PO SCH (10:17)
[2017-08-08] MEDS: TOPROL XL PO SCH (10:17)
[2017-08-08] MEDS: SODIUM CHLORIDE FLUSH SYRINGE 10 ML IV SCH ×2 (10:18→23:00)
[2017-08-08] MEDS: BUTT PASTE/LIDOCAINE TP SCH ×2 (10:19→23:00)
--- NOTE | 2017-08-08 11:36 | Progress Note ---
Assessment and Plan Assessment and plan: 77-year-old woman admitted for syncope and JEANNE Transient autonomic imbalance/ Syncope; troponin negative, echo shows EF 35%, MPI neg, likely vasovagal,, hold Lyrica and Exelon as he might have led to syncope Systolic chf, euvolemic, stable recurrent Hyperkalemia; may be related to SANJIV inhibitor, held SANJIV inhibitor, sp Kayexalate x2 JEANNE upon Chronic kidney disease stage II to 3; avoid nephrotoxins, ivf, renal us shows only medical renal disease with no hydronephrosis, renal consult appreciated Alzheimer's dementia; supportive care Hypertensive urgency : Optimize BP medications, held sanjiv due to jeanne and hyperkalemia Tachycardia, ekg shows sinus rythym, no further workup Dispo: home with her daughter tomorrow is Creatinine is stable and if Nephrology agrees History Interval history: no cp, no sob, no fever, no vomiting, no seizure, no fever no further episodes of syncope Hospitalist Physical - Physical exam Narrative exam: General appearance: Present: no acute distress - EENT Eyes: Present: PERRL ENT: hearing intact - Neck Neck: Present: supple - Respiratory Respiratory effort: normal Respiratory: bilateral: CTA - Cardiovascular Rhythm: regular Heart Sounds: Present: S1 & S2 - Extremities Extremities: no ischemia Peripheral Pulses: within normal limits - Abdominal General gastrointestinal: soft, non-tender, non-distended, normal bowel sounds - Integumentary Integumentary: Present: clear, warm, dry - Psychiatric Psychiatric: appropriate mood/affect, no intact judgment & insight (oriented x1 , demented) - Neurologic Neurologic: CNII-XII intact, focal deficits, moves all extremities - Constitutional Vitals: Temp Pulse Resp BP Pulse Ox 97.7 F 80 18 122/52 95 08/08/17 07:27 08/08/17 10:17 08/08/17 07:27 08/08/17 07:27 08/08/17 07:27 General appearance: Present: no acute distress, well-nourished Results - Labs CBC & Chem 7: 08/02/17 07:11 08/08/17 06:06 Labs: Laboratory Last Values WBC 4.5 K/mm3 (4.5-11.0) 08/02/17 07:11 RBC 4.04 M/mm3 (3.65-5.03) 08/02/17 07:11 Hgb 11.4 gm/dl (10.1-14.3) 08/02/17 07:11 Hct 35.4 % (30.3-42.9) 08/02/17 07:11 MCV 88 fl (79-97) 08/02/17 07:11 MCH 28 pg (28-32) 08/02/17 07:11 MCHC 32 % (30-34) 08/02/17 07:11 RDW 14.2 % (13.2-15.2) 08/02/17 07:11 Plt Count 191 K/mm3 (140-440) 08/02/17 07:11 Add Manual Diff Complete 08/02/17 07:11 Total Counted 100 08/02/17 07:11 Seg Neuts % (Manual) 66.0 % (40.0-70.0) 08/02/17 07:11 Band Neutrophils % 0 % 08/02/17 07:11 Lymphocytes % (Manual) 24.0 % (13.4-35.0) 08/02/17 07:11 Reactive Lymphs % (Man) 0 % 08/02/17 07:11 Monocytes % (Manual) 9.0 % (0.0-7.3) H 08/02/17 07:11 Eosinophils % (Manual) 1.0 % (0.0-4.3) 08/02/17 07:11 Basophils % (Manual) 0 % (0.0-1.8) 08/02/17 07:11 Metamyelocytes % 0 % 08/02/17 07:11 Myelocytes % 0 % 08/02/17 07:11 Promyelocytes % 0 % 08/02/17 07:11 Blast Cells % 0 % 08/02/17 07:11 Nucleated RBC % Not Reportable 08/02/17 07:11 Seg Neutrophils # Man 3.0 K/mm3 (1.8-7.7) 08/02/17 07:11 Band Neutrophils # 0.0 K/mm3 08/02/17 07:11 Lymphocytes # (Manual) 1.1 K/mm3 (1.2-5.4) L 08/02/17 07:11 Abs React Lymphs (Man) 0.0 K/mm3 08/02/17 07:11 Monocytes # (Manual) 0.4 K/mm3 (0.0-0.8) 08/02/17 07:11 Eosinophils # (Manual) 0.0 K/mm3 (0.0-0.4) 08/02/17 07:11 Basophils # (Manual) 0.0 K/mm3 (0.0-0.1) 08/02/17 07:11 Metamyelocytes # 0.0 K/mm3 08/02/17 07:11 Myelocytes # 0.0 K/mm3 08/02/17 07:11 Promyelocytes # 0.0 K/mm3 08/02/17 07:11 Blast Cells # 0.0 K/mm3 08/02/17 07:11 WBC Morphology Not Reportable 08/02/17 07:11 Hypersegmented Neuts Not Reportable 08/02/17 07:11 Hyposegmented Neuts Not Reportable 08/02/17 07:11 Hypogranular Neuts Not Reportable 08/02/17 07:11 Smudge Cells Not Reportable 08/02/17 07:11 Toxic Granulation Not Reportable 08/02/17 07:11 Toxic Vacuolation Not Reportable 08/02/17 07:11 Dohle Bodies Not Reportable 08/02/17 07:11 Pelger-Huet Anomaly Not Reportable 08/02/17 07:11 Lisy Rods Not Reportable 08/02/17 07:11 Platelet Estimate Appears normal 08/02/17 07:11 Clumped Platelets Not Reportable 08/02/17 07:11 Plt Clumps, EDTA Not Reportable 08/02/17 07:11 Large Platelets Not Reportable 08/02/17 07:11 Giant Platelets Not Reportable 08/02/17 07:11 Platelet Satelliting Not Reportable 08/02/17 07:11 Plt Morphology Comment Not Reportable 08/02/17 07:11 RBC Morphology Not Reportable 08/02/17 07:11 Dimorphic RBCs Not Reportable 08/02/17 07:11 Polychromasia Not Reportable 08/02/17 07:11 Hypochromasia Not Reportable 08/02/17 07:11 Poikilocytosis Not Reportable 08/02/17 07:11 Anisocytosis Not Reportable 08/02/17 07:11 Microcytosis Not Reportable 08/02/17 07:11 Macrocytosis Not Reportable 08/02/17 07:11 Spherocytes Not Reportable 08/02/17 07:11 Pappenheimer Bodies Not Reportable 08/02/17 07:11 Sickle Cells Not Reportable 08/02/17 07:11 Target Cells Not Reportable 08/02/17 07:11 Tear Drop Cells Not Reportable 08/02/17 07:11 Ovalocytes Not Reportable 08/02/17 07:11 Helmet Cells Not Reportable 08/02/17 07:11 [place] Bodies Not Reportable 08/02/17 07:11 [place] Rings Not Reportable 08/02/17 07:11 [place] Cells Not Reportable 08/02/17 07:11 Bite Cells Not Reportable 08/02/17 07:11 Crenated Cell Not Reportable 08/02/17 07:11 Elliptocytes Not Reportable 08/02/17 07:11 Acanthocytes (Spur) Not Reportable 08/02/17 07:11 Rouleaux Not Reportable 08/02/17 07:11 Hemoglobin C Crystals Not Reportable 08/02/17 07:11 Schistocytes Not Reportable 08/02/17 07:11 Malaria parasites Not Reportable 08/02/17 07:11 Ankit Bodies Not Reportable 08/02/17 07:11 Hem Pathologist Commnt No 08/02/17 07:11 Sodium 142 mmol/L (137-145) 08/08/17 06:06 Potassium 4.0 mmol/L (3.6-5.0) D 08/08/17 06:06 Chloride 100.5 mmol/L (98-107) 08/08/17 06:06 Carbon Dioxide 27 mmol/L (22-30) 08/08/17 06:06 Anion Gap 19 mmol/L 08/08/17 06:06 BUN 47 mg/dL (7-17) H 08/08/17 06:06 Creatinine 1.9 mg/dL (0.7-1.2) H 08/08/17 06:06 Estimated GFR 31 ml/min 08/08/17 06:06 BUN/Creatinine Ratio 25 % 08/08/17 06:06 Glucose 177 mg/dL (65-100) H 08/08/17 06:06 POC Glucose 191 (70-105) H 08/08/17 08:10 Hemoglobin A1c 8.1 % (4-6) H 08/08/17 06:06 Calcium 9.0 mg/dL (8.4-10.2) 08/08/17 06:06 Magnesium 2.20 mg/dL (1.7-2.3) 08/07/17 14:52 Total Bilirubin < 0.20 mg/dL (0.1-1.2) 08/02/17 07:04 AST 18 units/L (5-40) 08/02/17 07:04 ALT 13 units/L (7-56) 08/02/17 07:04 Alkaline Phosphatase 85 units/L (35-129) 08/02/17 07:04 Total Creatine Kinase 86 units/L (30-135) 08/03/17 17:10 CK-MB (CK-2) 2.0 ng/mL (0.0-4.0) 08/03/17 17:10 CK-MB (CK-2) Rel Index 2.3 (0-4) 08/03/17 17:10 Troponin T 0.010 ng/mL (0.00-0.029) 08/03/17 17:10 NT-Pro-B Natriuret Pep 75.99 pg/mL (0-900) 08/02/17 07:04 Total Protein 7.6 g/dL (6.3-8.2) 08/02/17 07:04 Albumin 4.1 g/dL (3.9-5) 08/02/17 07:04 Albumin/Globulin Ratio 1.2 % 08/02/17 07:04 Urine Color Straw (Yellow) 08/02/17 13:35 Urine Turbidity Clear (Clear) 08/02/17 13:35 Urine pH 7.0 (5.0-7.0) 08/02/17 13:35 Ur Specific [place] 1.010 (1.003-1.030) 08/02/17 13:35 Urine Protein <15 mg/dl mg/dL (Negative) 08/02/17 13:35 Urine Glucose (UA) Neg mg/dL (Negative) 08/02/17 13:35 Urine Ketones Neg mg/dL (Negative) 08/02/17 13:35 Urine Blood Neg (Negative) 08/02/17 13:35 Urine Nitrite Neg (Negative) 08/02/17 13:35 Urine Bilirubin Neg (Negative) 08/02/17 13:35 Urine Urobilinogen < 2.0 mg/dL (<2.0) 08/02/17 13:35 Ur Leukocyte Esterase Neg (Negative) 08/02/17 13:35 Urine WBC (Auto) 2.0 /HPF (0.0-6.0) 08/02/17 13:35 Urine RBC (Auto) 2.0 /HPF (0.0-6.0) 08/02/17 13:35 U Epithel Cells (Auto) 1.0 /HPF (0-13.0) 08/02/17 13:35 Urine Bacteria (Auto) 1+ /HPF (Negative) 08/02/17 13:35 Urine Mucus Few /HPF 08/02/17 13:35 Urine Opiates Screen Presumptive negative 08/02/17 13:35 Urine Methadone Screen Presumptive negative 08/02/17 13:35 Ur Barbiturates Screen Presumptive negative 08/02/17 13:35 Levetiracetam 16.9 mcg/mL 08/02/17 14:42 Ur Phencyclidine Scrn Presumptive negative 08/02/17 13:35 Ur Amphetamines Screen Presumptive negative 08/02/17 13:35 U Benzodiazepines Scrn Presumptive negative 08/02/17 13:35 Urine Cocaine Screen Presumptive negative 08/02/17 13:35 U Marijuana (THC) Screen Presumptive negative 08/02/17 13:35 Drugs of Abuse Note Disclamer 08/02/17 13:35
--- NOTE | 2017-08-08 11:38 | Progress Note ---
Assessment and Plan Assessment and plan: 77-year-old woman admitted for syncope and Transient autonomic imbalance/ Syncope; troponin negative, echo shows EF 35%, MPI neg, likely vasovagal,, hold Lyrica and Exelon as he might have led to syncope Systolic chf, euvolemic, stable Hyperkalemia; may be related to SANJIV inhibitor, held SANJIV inhibitor, sp Kayexalate , give another dose today JEANNE upon Chronic kidney disease stage II to 3; avoid nephrotoxins, ivf, renal us shows only medical renal disease with no hydronephrosis, renal consult appreciated Alzheimer's dementia; supportive care Hypertensive urgency : Optimize BP medications Tachycardia, ekg shows sinus rythym, no further workup History Interval history: no cp, no sob, no fever, no vomiting, no seizure, no fever no further episodes of syncope Hospitalist Physical - Physical exam Narrative exam: General appearance: Present: no acute distress - EENT Eyes: Present: PERRL ENT: hearing intact - Neck Neck: Present: supple - Respiratory Respiratory effort: normal Respiratory: bilateral: CTA - Cardiovascular Rhythm: regular Heart Sounds: Present: S1 & S2 - Extremities Extremities: no ischemia Peripheral Pulses: within normal limits - Abdominal General gastrointestinal: soft, non-tender, non-distended, normal bowel sounds - Integumentary Integumentary: Present: clear, warm, dry - Psychiatric Psychiatric: appropriate mood/affect, no intact judgment & insight (oriented x1 , demented) - Neurologic Neurologic: CNII-XII intact, focal deficits, moves all extremities - Constitutional Vitals: Temp Pulse Resp BP Pulse Ox 97.7 F 80 18 122/52 95 08/08/17 07:27 08/08/17 10:17 08/08/17 07:27 08/08/17 07:27 08/08/17 07:27 General appearance: Present: no acute distress, well-nourished Results - Labs CBC & Chem 7: 08/02/17 07:11 08/08/17 06:06 Labs: Laboratory Last Values WBC 4.5 K/mm3 (4.5-11.0) 08/02/17 07:11 RBC 4.04 M/mm3 (3.65-5.03) 08/02/17 07:11 Hgb 11.4 gm/dl (10.1-14.3) 08/02/17 07:11 Hct 35.4 % (30.3-42.9) 08/02/17 07:11 MCV 88 fl (79-97) 08/02/17 07:11 MCH 28 pg (28-32) 08/02/17 07:11 MCHC 32 % (30-34) 08/02/17 07:11 RDW 14.2 % (13.2-15.2) 08/02/17 07:11 Plt Count 191 K/mm3 (140-440) 08/02/17 07:11 Add Manual Diff Complete 08/02/17 07:11 Total Counted 100 08/02/17 07:11 Seg Neuts % (Manual) 66.0 % (40.0-70.0) 08/02/17 07:11 Band Neutrophils % 0 % 08/02/17 07:11 Lymphocytes % (Manual) 24.0 % (13.4-35.0) 08/02/17 07:11 Reactive Lymphs % (Man) 0 % 08/02/17 07:11 Monocytes % (Manual) 9.0 % (0.0-7.3) H 08/02/17 07:11 Eosinophils % (Manual) 1.0 % (0.0-4.3) 08/02/17 07:11 Basophils % (Manual) 0 % (0.0-1.8) 08/02/17 07:11 Metamyelocytes % 0 % 08/02/17 07:11 Myelocytes % 0 % 08/02/17 07:11 Promyelocytes % 0 % 08/02/17 07:11 Blast Cells % 0 % 08/02/17 07:11 Nucleated RBC % Not Reportable 08/02/17 07:11 Seg Neutrophils # Man 3.0 K/mm3 (1.8-7.7) 08/02/17 07:11 Band Neutrophils # 0.0 K/mm3 08/02/17 07:11 Lymphocytes # (Manual) 1.1 K/mm3 (1.2-5.4) L 08/02/17 07:11 Abs React Lymphs (Man) 0.0 K/mm3 08/02/17 07:11 Monocytes # (Manual) 0.4 K/mm3 (0.0-0.8) 08/02/17 07:11 Eosinophils # (Manual) 0.0 K/mm3 (0.0-0.4) 08/02/17 07:11 Basophils # (Manual) 0.0 K/mm3 (0.0-0.1) 08/02/17 07:11 Metamyelocytes # 0.0 K/mm3 08/02/17 07:11 Myelocytes # 0.0 K/mm3 08/02/17 07:11 Promyelocytes # 0.0 K/mm3 08/02/17 07:11 Blast Cells # 0.0 K/mm3 08/02/17 07:11 WBC Morphology Not Reportable 08/02/17 07:11 Hypersegmented Neuts Not Reportable 08/02/17 07:11 Hyposegmented Neuts Not Reportable 08/02/17 07:11 Hypogranular Neuts Not Reportable 08/02/17 07:11 Smudge Cells Not Reportable 08/02/17 07:11 Toxic Granulation Not Reportable 08/02/17 07:11 Toxic Vacuolation Not Reportable 08/02/17 07:11 Dohle Bodies Not Reportable 08/02/17 07:11 Pelger-[place]uet Anomaly Not Reportable 08/02/17 07:11 Lisy Rods Not Reportable 08/02/17 07:11 Platelet Estimate Appears normal 08/02/17 07:11 Clumped Platelets Not Reportable 08/02/17 07:11 Plt Clumps, EDTA Not Reportable 08/02/17 07:11 Large Platelets Not Reportable 08/02/17 07:11 Giant Platelets Not Reportable 08/02/17 07:11 Platelet Satelliting Not Reportable 08/02/17 07:11 Plt Morphology Comment Not Reportable 08/02/17 07:11 RBC Morphology Not Reportable 08/02/17 07:11 Dimorphic RBCs Not Reportable 08/02/17 07:11 Polychromasia Not Reportable 08/02/17 07:11 Hypochromasia Not Reportable 08/02/17 07:11 Poikilocytosis Not Reportable 08/02/17 07:11 Anisocytosis Not Reportable 08/02/17 07:11 Microcytosis Not Reportable 08/02/17 07:11 Macrocytosis Not Reportable 08/02/17 07:11 Spherocytes Not Reportable 08/02/17 07:11 Pappenheimer Bodies Not Reportable 08/02/17 07:11 Sickle Cells Not Reportable 08/02/17 07:11 Target Cells Not Reportable 08/02/17 07:11 Tear Drop Cells Not Reportable 08/02/17 07:11 Ovalocytes Not Reportable 08/02/17 07:11 Helmet Cells Not Reportable 08/02/17 07:11 [place] Bodies Not Reportable 08/02/17 07:11 [place] Rings Not Reportable 08/02/17 07:11 [place] Cells Not Reportable 08/02/17 07:11 Bite Cells Not Reportable 08/02/17 07:11 Crenated Cell Not Reportable 08/02/17 07:11 Elliptocytes Not Reportable 08/02/17 07:11 Acanthocytes (Spur) Not Reportable 08/02/17 07:11 Rouleaux Not Reportable 08/02/17 07:11 Hemoglobin C Crystals Not Reportable 08/02/17 07:11 Schistocytes Not Reportable 08/02/17 07:11 Malaria parasites Not Reportable 08/02/17 07:11 Ankit Bodies Not Reportable 08/02/17 07:11 Hem Pathologist Commnt No 08/02/17 07:11 Sodium 142 mmol/L (137-145) 08/08/17 06:06 Potassium 4.0 mmol/L (3.6-5.0) D 08/08/17 06:06 Chloride 100.5 mmol/L (98-107) 08/08/17 06:06 Carbon Dioxide 27 mmol/L (22-30) 08/08/17 06:06 Anion Gap 19 mmol/L 08/08/17 06:06 BUN 47 mg/dL (7-17) H 08/08/17 06:06 Creatinine 1.9 mg/dL (0.7-1.2) H 08/08/17 06:06 Estimated GFR 31 ml/min 08/08/17 06:06 BUN/Creatinine Ratio 25 % 08/08/17 06:06 Glucose 177 mg/dL (65-100) H 08/08/17 06:06 POC Glucose 191 (70-105) H 08/08/17 08:10 Hemoglobin A1c 8.1 % (4-6) H 08/08/17 06:06 Calcium 9.0 mg/dL (8.4-10.2) 08/08/17 06:06 Magnesium 2.20 mg/dL (1.7-2.3) 08/07/17 14:52 Total Bilirubin < 0.20 mg/dL (0.1-1.2) 08/02/17 07:04 AST 18 units/L (5-40) 08/02/17 07:04 ALT 13 units/L (7-56) 08/02/17 07:04 Alkaline Phosphatase 85 units/L (35-129) 08/02/17 07:04 Total Creatine Kinase 86 units/L (30-135) 08/03/17 17:10 CK-MB (CK-2) 2.0 ng/mL (0.0-4.0) 08/03/17 17:10 CK-MB (CK-2) Rel Index 2.3 (0-4) 08/03/17 17:10 Troponin T 0.010 ng/mL (0.00-0.029) 08/03/17 17:10 NT-Pro-B Natriuret Pep 75.99 pg/mL (0-900) 08/02/17 07:04 Total Protein 7.6 g/dL (6.3-8.2) 08/02/17 07:04 Albumin 4.1 g/dL (3.9-5) 08/02/17 07:04 Albumin/Globulin Ratio 1.2 % 08/02/17 07:04 Urine Color Straw (Yellow) 08/02/17 13:35 Urine Turbidity Clear (Clear) 08/02/17 13:35 Urine pH 7.0 (5.0-7.0) 08/02/17 13:35 Ur Specific [place] 1.010 (1.003-1.030) 08/02/17 13:35 Urine Protein <15 mg/dl mg/dL (Negative) 08/02/17 13:35 Urine Glucose (UA) Neg mg/dL (Negative) 08/02/17 13:35 Urine Ketones Neg mg/dL (Negative) 08/02/17 13:35 Urine Blood Neg (Negative) 08/02/17 13:35 Urine Nitrite Neg (Negative) 08/02/17 13:35 Urine Bilirubin Neg (Negative) 08/02/17 13:35 Urine Urobilinogen < 2.0 mg/dL (<2.0) 08/02/17 13:35 Ur Leukocyte Esterase Neg (Negative) 08/02/17 13:35 Urine WBC (Auto) 2.0 /HPF (0.0-6.0) 08/02/17 13:35 Urine RBC (Auto) 2.0 /HPF (0.0-6.0) 08/02/17 13:35 U Epithel Cells (Auto) 1.0 /HPF (0-13.0) 08/02/17 13:35 Urine Bacteria (Auto) 1+ /HPF (Negative) 08/02/17 13:35 Urine Mucus Few /HPF 08/02/17 13:35 Urine Opiates Screen Presumptive negative 08/02/17 13:35 Urine Methadone Screen Presumptive negative 08/02/17 13:35 Ur Barbiturates Screen Presumptive negative 08/02/17 13:35 Levetiracetam 16.9 mcg/mL 08/02/17 14:42 Ur Phencyclidine Scrn Presumptive negative 08/02/17 13:35 Ur Amphetamines Screen Presumptive negative 08/02/17 13:35 U Benzodiazepines Scrn Presumptive negative 08/02/17 13:35 Urine Cocaine Screen Presumptive negative 08/02/17 13:35 U Marijuana (THC) Screen Presumptive negative 08/02/17 13:35 Drugs of Abuse Note Disclamer 08/02/17 13:35
--- NOTE | 2017-08-08 19:54 | Progress Note ---
Assessment and Plan - Patient Problems (1) Acute kidney injury Current Visit: Yes Status: Acute Plan to address problem: Acute kidney injury Pre-renal azotemia vs acute tubular necrosis secondary to hypotension. Patient had episodes of low blood pressure with consequent worsening renal function. Kidney function is still not improving. Follow up kidney function and electrolytes in the morning. If stable improving, patient could be discharged tomorrow from my standpoint (2) Pre-syncope Current Visit: Yes Status: Acute Plan to address problem: Question secondary to hypotension. Cardiac workup noted. Blood pressure is stable off of SANJIV inhibitor (3) Chronic kidney disease, stage III (moderate) Current Visit: Yes Status: Acute Plan to address problem: Chronic kidney disease presumed secondary to diabetic nephropathy/hypertensive nephrosclerosis. (4) Type 2 diabetes mellitus with diabetic nephropathy Current Visit: Yes Status: Acute Plan to address problem: Blood sugar management by primary attending (5) Hypertensive chronic kidney disease with stage 1 through stage 4 chronic kidney disease, or unspecified chronic kidney disease Current Visit: Yes Status: Acute Plan to address problem: Hold lisinopril with the episodes of low blood pressure and worsening kidney function. Blood pressure is stable off of SANJIV inhibitor. May resume at a lower dose and then discontinue amlodipine when blood pressure is stable and kidney function has improved back to baseline. This can be done as an outpatient Subjective Date of service: 08/08/17 Principal diagnosis: Presyncope, HTN, Cardiomyopathy, DM, Dementia Interval history: Patient seen lying in bed. She has no new complaints. She actually feels better Objective - Exam Narrative Exam: Elderly -[place] female lying in bed in no acute distress HEENT: NCAT, pink oral mucous membrane Neck: Supple, no venous distention CVS: S1S2 RRR with no murmur, rub or gallop Chest: Clear to auscultation Abdomen: Protuberant, soft, nontender, no organomegaly, bowel sounds are present Extremities: No edema, no clubbing, pigmentary changes Neuro: Awake, alert no focal deficits - Vital Signs Vital signs: Vital Signs - 12hr 08/08/17 08/08/17 10:17 15:31 Temperature 98.0 F Pulse Rate 80 71 Respiratory 18 Rate Blood Pressure 109/49 [Right] O2 Sat by Pulse 94 Oximetry - Lab 08/02/17 07:11 08/08/17 06:06 Most recent lab results Calcium 9.0 mg/dL (8.4-10.2) 08/08/17 06:06 Magnesium 2.20 mg/dL (1.7-2.3) 08/07/17 14:52
[2017-08-08] MEDS: PRAVACHOL PO SCH (23:00)
[2017-08-08] MEDS: LOVENOX SUB-Q SCH (23:00)
[2017-08-09] MEDS: BENADRYL PO PRN (06:54)
[2017-08-09 08:14] LABS: Calcium 9.1 mg/dL (8.4-10.2)
[2017-08-09] MEDS: HumaLOG SUB-Q SCH ×4 (08:38→23:05)
[2017-08-09] MEDS: BUTT PASTE/LIDOCAINE TP SCH ×2 (10:23→23:07)
[2017-08-09] MEDS: DITROPAN PO SCH ×2 (10:24→23:01)
[2017-08-09] MEDS: KEPPRA PO SCH ×2 (10:25→23:03)
[2017-08-09] MEDS: OSCAL PO SCH (10:25)
[2017-08-09] MEDS: NORVASC PO SCH (10:32)
[2017-08-09] MEDS: TOPROL XL PO SCH (10:33)
[2017-08-09] MEDS: VITAMIN C PO SCH (10:33)
[2017-08-09] MEDS: VITAMIN E CAP PO SCH (10:34)
[2017-08-09] MEDS: VITAMIN D3 PO SCH ×2 (10:34→23:02)
[2017-08-09] MEDS: SODIUM CHLORIDE FLUSH SYRINGE 10 ML IV SCH ×2 (10:35→23:08)
[2017-08-09] MEDS: NAMENDA PO SCH ×2 (10:36→23:03)
--- NOTE | 2017-08-09 13:48 | Progress Note ---
Assessment and Plan Assessment and plan: Day 7 which is my first day with patient Ms. Arciniega is a 77-year-old woman admitted for syncope and JEANNE: -Transient autonomic imbalance/ Syncope; troponin negative, echo shows EF 35%, MPI neg, likely vasovagal, hold Lyrica and Exelon as he might have led to syncope -Systolic chf, euvolemic, stable -Hyperkalemia; may be related to SANJIV inhibitor, held SANJIV inhibitor, sp Kayexalate x2 -JEANNE/Chronic kidney disease stage 3, vasomotor nephropathy, poa; avoid nephrotoxins, ivf, renal us shows only medical renal disease with no hydronephrosis, renal consult appreciated -Alzheimer's dementia; supportive care -Hypertensive urgency : Optimize BP medications, held sanjiv due to jeanne and hyperkalemia -Acute metabolic encephalopathy, poa -Tachycardia, ekg shows sinus rythym, no further workup -DM; a1c of 8, added SSI Dispo: home with her daughter tomorrow if CR stable per Nephrology History Interval history: Patient was seen and examined. Follow-up on current diagnosis of AMS. Overnight uneventful. Patient denies any chest pain, shortness breath, nausea/ vomiting or severe headaches. Imaging, nursing note, chart, labs and old chart reviewed. Discussed with patient. Hospitalist Physical - Physical exam Narrative exam: GEN: WDWN, NAD, AWAKE, ALERT, ORIENTATED 2 patient stated the current year as 1991 HEENT: NCAT, EOMI, PERRL, OP Clear NECK: supple, no adenopathy, no thyromegaly, no JVD CVS/HEART: RRR, NORMAL S1S2, pulses present bilaterally CHEST/LUNGS: CTA B, Symmetrical chest expansion, good air entry bilaterally GI/Abdomen: soft, NTND, good bowel sounds, no guarding or rebound /Bladder: no suprapubic tenderness, no CVA or paraspinal tenderness EXT/Skin: no c/c/e, no obvious rash MSK: FROM x 4 Neuro: CN 2-12 grossly intact, no new focal deficits Psych: calm - Constitutional Vitals: Temp Pulse Resp BP Pulse Ox 97.8 F 70 18 130/63 95 08/09/17 07:39 08/09/17 10:33 08/09/17 07:40 08/09/17 10:33 08/09/17 07:39 General appearance: Present: no acute distress, well-nourished Results - Labs CBC & Chem 7: 08/02/17 07:11 04 07:33 Labs: Laboratory Last Values WBC 4.5 K/mm3 (4.5-11.0) 08/02/17 07:11 RBC 4.04 M/mm3 (3.65-5.03) 08/02/17 07:11 Hgb 11.4 gm/dl (10.1-14.3) 08/02/17 07:11 Hct 35.4 % (30.3-42.9) 08/02/17 07:11 MCV 88 fl (79-97) 08/02/17 07:11 MCH 28 pg (28-32) 08/02/17 07:11 MCHC 32 % (30-34) 08/02/17 07:11 RDW 14.2 % (13.2-15.2) 08/02/17 07:11 Plt Count 191 K/mm3 (140-440) 08/02/17 07:11 Add Manual Diff Complete 08/02/17 07:11 Total Counted 100 08/02/17 07:11 Seg Neuts % (Manual) 66.0 % (40.0-70.0) 08/02/17 07:11 Band Neutrophils % 0 % 08/02/17 07:11 Lymphocytes % (Manual) 24.0 % (13.4-35.0) 08/02/17 07:11 Reactive Lymphs % (Man) 0 % 08/02/17 07:11 Monocytes % (Manual) 9.0 % (0.0-7.3) H 08/02/17 07:11 Eosinophils % (Manual) 1.0 % (0.0-4.3) 08/02/17 07:11 Basophils % (Manual) 0 % (0.0-1.8) 08/02/17 07:11 Metamyelocytes % 0 % 08/02/17 07:11 Myelocytes % 0 % 08/02/17 07:11 Promyelocytes % 0 % 08/02/17 07:11 Blast Cells % 0 % 08/02/17 07:11 Nucleated RBC % Not Reportable 08/02/17 07:11 Seg Neutrophils # Man 3.0 K/mm3 (1.8-7.7) 08/02/17 07:11 Band Neutrophils # 0.0 K/mm3 08/02/17 07:11 Lymphocytes # (Manual) 1.1 K/mm3 (1.2-5.4) L 08/02/17 07:11 Abs React Lymphs (Man) 0.0 K/mm3 08/02/17 07:11 Monocytes # (Manual) 0.4 K/mm3 (0.0-0.8) 08/02/17 07:11 Eosinophils # (Manual) 0.0 K/mm3 (0.0-0.4) 08/02/17 07:11 Basophils # (Manual) 0.0 K/mm3 (0.0-0.1) 08/02/17 07:11 Metamyelocytes # 0.0 K/mm3 08/02/17 07:11 Myelocytes # 0.0 K/mm3 08/02/17 07:11 Promyelocytes # 0.0 K/mm3 08/02/17 07:11 Blast Cells # 0.0 K/mm3 08/02/17 07:11 WBC Morphology Not Reportable 08/02/17 07:11 Hypersegmented Neuts Not Reportable 08/02/17 07:11 Hyposegmented Neuts Not Reportable 08/02/17 07:11 Hypogranular Neuts Not Reportable 08/02/17 07:11 Smudge Cells Not Reportable 08/02/17 07:11 Toxic Granulation Not Reportable 08/02/17 07:11 Toxic Vacuolation Not Reportable 08/02/17 07:11 Dohle Bodies Not Reportable 08/02/17 07:11 Pelger-Huet Anomaly Not Reportable 08/02/17 07:11 Lisy Rods Not Reportable 08/02/17 07:11 Platelet Estimate Appears normal 08/02/17 07:11 Clumped Platelets Not Reportable 08/02/17 07:11 Plt Clumps, EDTA Not Reportable 08/02/17 07:11 Large Platelets Not Reportable 08/02/17 07:11 Giant Platelets Not Reportable 08/02/17 07:11 Platelet Satelliting Not Reportable 08/02/17 07:11 Plt Morphology Comment Not Reportable 08/02/17 07:11 RBC Morphology Not Reportable 08/02/17 07:11 Dimorphic RBCs Not Reportable 08/02/17 07:11 Polychromasia Not Reportable 08/02/17 07:11 Hypochromasia Not Reportable 08/02/17 07:11 Poikilocytosis Not Reportable 08/02/17 07:11 Anisocytosis Not Reportable 08/02/17 07:11 Microcytosis Not Reportable 08/02/17 07:11 Macrocytosis Not Reportable 08/02/17 07:11 Spherocytes Not Reportable 08/02/17 07:11 Pappenheimer Bodies Not Reportable 08/02/17 07:11 Sickle Cells Not Reportable 08/02/17 07:11 Target Cells Not Reportable 08/02/17 07:11 Tear Drop Cells Not Reportable 08/02/17 07:11 Ovalocytes Not Reportable 08/02/17 07:11 Helmet Cells Not Reportable 08/02/17 07:11 [place] Bodies Not Reportable 08/02/17 07:11 [place] Rings Not Reportable 08/02/17 07:11 [place] Cells Not Reportable 08/02/17 07:11 Bite Cells Not Reportable 08/02/17 07:11 Crenated Cell Not Reportable 08/02/17 07:11 Elliptocytes Not Reportable 08/02/17 07:11 Acanthocytes (Spur) Not Reportable 08/02/17 07:11 Rouleaux Not Reportable 08/02/17 07:11 Hemoglobin C Crystals Not Reportable 08/02/17 07:11 Schistocytes Not Reportable 08/02/17 07:11 Malaria parasites Not Reportable 08/02/17 07:11 Ankit Bodies Not Reportable 08/02/17 07:11 Hem Pathologist Commnt No 08/02/17 07:11 Sodium 144 mmol/L (137-145) 08/09/17 07:33 Potassium 4.1 mmol/L (3.6-5.0) 08/09/17 07:33 Chloride 103.5 mmol/L (98-107) 08/09/17 07:33 Carbon Dioxide 28 mmol/L (22-30) 08/09/17 07:33 Anion Gap 17 mmol/L 08/09/17 07:33 BUN 43 mg/dL (7-17) H 08/09/17 07:33 Creatinine 1.7 mg/dL (0.7-1.2) H 08/09/17 07:33 Estimated GFR 35 ml/min 08/09/17 07:33 BUN/Creatinine Ratio 25 % 08/09/17 07:33 Glucose 165 mg/dL (65-100) H 08/09/17 07:33 POC Glucose 320 (70-105) H 08/09/17 11:35 Hemoglobin A1c 8.1 % (4-6) H 08/08/17 06:06 Calcium 9.1 mg/dL (8.4-10.2) 08/09/17 07:33 Magnesium 2.20 mg/dL (1.7-2.3) 08/07/17 14:52 Total Bilirubin < 0.20 mg/dL (0.1-1.2) 08/02/17 07:04 AST 18 units/L (5-40) 08/02/17 07:04 ALT 13 units/L (7-56) 08/02/17 07:04 Alkaline Phosphatase 85 units/L (35-129) 08/02/17 07:04 Total Creatine Kinase 86 units/L (30-135) 08/03/17 17:10 CK-MB (CK-2) 2.0 ng/mL (0.0-4.0) 08/03/17 17:10 CK-MB (CK-2) Rel Index 2.3 (0-4) 08/03/17 17:10 Troponin T 0.010 ng/mL (0.00-0.029) 08/03/17 17:10 NT-Pro-B Natriuret Pep 75.99 pg/mL (0-900) 08/02/17 07:04 Total Protein 7.6 g/dL (6.3-8.2) 08/02/17 07:04 Albumin 4.1 g/dL (3.9-5) 08/02/17 07:04 Albumin/Globulin Ratio 1.2 % 08/02/17 07:04 Urine Color Straw (Yellow) 08/02/17 13:35 Urine Turbidity Clear (Clear) 08/02/17 13:35 Urine pH 7.0 (5.0-7.0) 08/02/17 13:35 Ur Specific [place] 1.010 (1.003-1.030) 08/02/17 13:35 Urine Protein <15 mg/dl mg/dL (Negative) 08/02/17 13:35 Urine Glucose (UA) Neg mg/dL (Negative) 08/02/17 13:35 Urine Ketones Neg mg/dL (Negative) 08/02/17 13:35 Urine Blood Neg (Negative) 08/02/17 13:35 Urine Nitrite Neg (Negative) 08/02/17 13:35 Urine Bilirubin Neg (Negative) 08/02/17 13:35 Urine Urobilinogen < 2.0 mg/dL (<2.0) 08/02/17 13:35 Ur Leukocyte Esterase Neg (Negative) 08/02/17 13:35 Urine WBC (Auto) 2.0 /HPF (0.0-6.0) 08/02/17 13:35 Urine RBC (Auto) 2.0 /HPF (0.0-6.0) 08/02/17 13:35 U Epithel Cells (Auto) 1.0 /HPF (0-13.0) 08/02/17 13:35 Urine Bacteria (Auto) 1+ /HPF (Negative) 08/02/17 13:35 Urine Mucus Few /HPF 08/02/17 13:35 Urine Opiates Screen Presumptive negative 08/02/17 13:35 Urine Methadone Screen Presumptive negative 08/02/17 13:35 Ur Barbiturates Screen Presumptive negative 08/02/17 13:35 Levetiracetam 16.9 mcg/mL 08/02/17 14:42 Ur Phencyclidine Scrn Presumptive negative 08/02/17 13:35 Ur Amphetamines Screen Presumptive negative 08/02/17 13:35 U Benzodiazepines Scrn Presumptive negative 08/02/17 13:35 Urine Cocaine Screen Presumptive negative 08/02/17 13:35 U Marijuana (THC) Screen Presumptive negative 08/02/17 13:35 Drugs of Abuse Note Disclamer 08/02/17 13:35
--- NOTE | 2017-08-09 16:49 | Progress Note ---
Assessment and Plan - Patient Problems (1) Acute kidney injury Current Visit: Yes Status: Acute Plan to address problem: Acute kidney injury Pre-renal azotemia vs acute tubular necrosis secondary to hypotension. Patient had episodes of low blood pressure with consequent worsening renal function. Kidney function is now improving. Patient can be discharged home from my standpoint (2) Pre-syncope Current Visit: Yes Status: Acute Plan to address problem: Question secondary to hypotension. Cardiac workup noted. Blood pressure is stable off of SANJIV inhibitor (3) Chronic kidney disease, stage III (moderate) Current Visit: Yes Status: Acute Plan to address problem: Chronic kidney disease presumed secondary to diabetic nephropathy/hypertensive nephrosclerosis. (4) Type 2 diabetes mellitus with diabetic nephropathy Current Visit: Yes Status: Acute Plan to address problem: Blood sugar management by primary attending (5) Hypertensive chronic kidney disease with stage 1 through stage 4 chronic kidney disease, or unspecified chronic kidney disease Current Visit: Yes Status: Acute Plan to address problem: Hold lisinopril with the episodes of low blood pressure and worsening kidney function. Blood pressure is stable off of SANJIV inhibitor. May resume at a lower dose and then discontinue amlodipine when blood pressure is stable and kidney function has improved back to baseline. This can be done as an outpatient Subjective Date of service: 08/09/17 Principal diagnosis: Presyncope, HTN, Cardiomyopathy, DM, Dementia Interval history: Patient seen lying in bed. She has no new complaints. She actually feels better Objective - Exam Narrative Exam: Elderly -[place] female lying in bed in no acute distress HEENT: NCAT, pink oral mucous membrane Neck: Supple, no venous distention CVS: S1S2 RRR with no murmur, rub or gallop Chest: Clear to auscultation Abdomen: Protuberant, soft, nontender, no organomegaly, bowel sounds are present Extremities: No edema, no clubbing, pigmentary changes Neuro: Awake, alert no focal deficits - Vital Signs Vital signs: Vital Signs - 12hr 08/09/17 08/09/17 08/09/17 07:39 07:40 10:32 Temperature 97.8 F Pulse Rate 70 70 Respiratory 18 Rate Blood Pressure 130/63 130/63 O2 Sat by Pulse 95 Oximetry 08/09/17 10:33 Temperature Pulse Rate 70 Respiratory Rate Blood Pressure 130/63 O2 Sat by Pulse Oximetry - Lab 08/02/17 07:11 08/09/17 07:33 Most recent lab results Calcium 9.1 mg/dL (8.4-10.2) 08/09/17 07:33 Magnesium 2.20 mg/dL (1.7-2.3) 08/07/17 14:52
[2017-08-09] MEDS: PRAVACHOL PO SCH (23:02)
[2017-08-09] MEDS: LOVENOX SUB-Q SCH (23:03)
[2017-08-10] MEDS: HumaLOG SUB-Q SCH ×4 (08:14→22:13)
[2017-08-10 08:40] LABS: Calcium 9.4 mg/dL (8.4-10.2)
[2017-08-10] MEDS: KEPPRA PO SCH ×2 (09:46→22:01)
[2017-08-10] MEDS: DITROPAN PO SCH ×2 (09:46→22:01)
[2017-08-10] MEDS: TOPROL XL PO SCH (09:46)
[2017-08-10] MEDS: OSCAL PO SCH (09:47)
[2017-08-10] MEDS: VITAMIN C PO SCH (09:47)
[2017-08-10] MEDS: VITAMIN E CAP PO SCH (09:47)
[2017-08-10] MEDS: NORVASC PO SCH (09:47)
[2017-08-10] MEDS: NAMENDA PO SCH ×2 (09:47→22:02)
[2017-08-10] MEDS: VITAMIN D3 PO SCH ×2 (09:47→22:01)
[2017-08-10] MEDS: BUTT PASTE/LIDOCAINE TP SCH ×2 (09:48→22:00)
[2017-08-10] MEDS: SODIUM CHLORIDE FLUSH SYRINGE 10 ML IV SCH ×2 (09:49→22:08)
--- NOTE | 2017-08-10 11:29 | Discharge Summary ---
Providers - Providers Date of Admission: 08/02/17 09:57 Date of discharge: 08/10/17 Attending physician: GODFREY ROSALES 08/02/17 10:00 Consult to Physician [CONS] Routine Comment: Consulting Provider: LANEY SORENSEN Physician Instructions: Reason For Exam: seizure vs sycope 08/06/17 08:33 Consult to Physician [CONS] Routine Comment: Consulting Provider: ZION WITT Physician Instructions: Reason For Exam: jeanne Primary care physician: BUILDING MANAGER Hospitalization Condition: Stable Hospital course: Ms. Arciniega is a 77-year-old woman admitted for syncope and JEANNE: -Transient autonomic imbalance/ Syncope; troponin negative, echo shows EF 35%, MPI neg, likely vasovagal, hold Lyrica and Exelon as he might have led to syncope -Systolic chf, euvolemic, stable -Hyperkalemia; may be related to SANJIV inhibitor, held SANJIV inhibitor, sp Kayexalate x2 -JEANNE/Chronic kidney disease stage 3, vasomotor nephropathy, poa; avoid nephrotoxins, ivf, renal us shows only medical renal disease with no hydronephrosis, renal consult appreciated -Alzheimer's dementia; supportive care -Hypertensive urgency : Optimize BP medications, held sanjiv due to jeanne and hyperkalemia -Acute metabolic encephalopathy, poa -Tachycardia, ekg shows sinus rythym, no further workup -DM; a1c of 8, added SSI Dispo: home with her daughter Disposition: DC-01 TO HOME OR SELFCARE Time spent for discharge: 35 min Core Measure Documentation - Palliative Care Palliative Care/ Comfort Measures: Not Applicable - Core Measures Any of the following diagnoses?: none - VTE Discharge Requirements Deep Vein Thrombosis/Pulmonary Embolism Present on Admission: No Has pt received <5 days of overlap therapy or INR<2.0: No Anticoagulant overlap therapy prescribed at discharge: No Contraindication No Overlap Therapy order at DC: Not Indicated Exam - Physical Exam Narrative exam: GEN: WDWN, NAD, AWAKE, ALERT, ORIENTATED 2 patient stated the current year as 1991 HEENT: NCAT, EOMI, PERRL, OP Clear NECK: supple, no adenopathy, no thyromegaly, no JVD CVS/HEART: RRR, NORMAL S1S2, pulses present bilaterally CHEST/LUNGS: CTA B, Symmetrical chest expansion, good air entry bilaterally GI/Abdomen: soft, NTND, good bowel sounds, no guarding or rebound /Bladder: no suprapubic tenderness, no CVA or paraspinal tenderness EXT/Skin: no c/c/e, no obvious rash MSK: FROM x 4 Neuro: CN 2-12 grossly intact, no new focal deficits Psych: calm - Constitutional Vitals: Temp Pulse Resp BP Pulse Ox 98.3 F 78 18 144/75 81 L 08/09/17 19:53 08/10/17 09:47 08/09/17 19:53 08/10/17 09:47 08/09/17 19:53 Plan Activity: up only with assistance, fall precautions, other (no strenous activity until cleared by pcpB or nocturia) Diet: low salt Special Instructions: record daily BP diary, record blood sugar diary Follow up with: PRIMARY CARE, [Primary Care Provider] - 3-5 Days Prescriptions: amLODIPine [Norvasc] 5 mg PO QDAY #30 tablet Metoprolol Xl [Metoprolol SUCCINATE ER TAB] 50 mg PO QDAY #30 tablet
--- NOTE | 2017-08-10 14:12 | Progress Note ---
Assessment and Plan - Patient Problems (1) Acute kidney injury Current Visit: Yes Status: Acute Plan to address problem: Acute kidney injury Pre-renal azotemia vs acute tubular necrosis secondary to hypotension, now with improved renal function. Patient can be discharged home from my standpoint (2) Pre-syncope Current Visit: Yes Status: Acute Plan to address problem: Question secondary to hypotension. Cardiac workup noted. Blood pressure is stable off of SANJIV inhibitor (3) Hypertensive chronic kidney disease with stage 1 through stage 4 chronic kidney disease, or unspecified chronic kidney disease Current Visit: Yes Status: Acute Plan to address problem: Blood pressure is stable off of SANJIV inhibitor. May resume at a lower dose and then discontinue amlodipine when blood pressure is stable and kidney function has improved back to baseline. 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 (5) Type 2 diabetes mellitus with diabetic nephropathy Current Visit: Yes Status: Acute Plan to address problem: Blood sugar management by primary attending Subjective Date of service: 08/10/17 Principal diagnosis: Presyncope, HTN, Cardiomyopathy, DM, Dementia Interval history: Pt awake, in no acute distress. Objective - Vital Signs Vital signs: Vital Signs - 12hr 08/10/17 08/10/17 08/10/17 09:46 09:47 10:00 Pulse Rate 78 78 Respiratory 20 Rate Blood Pressure 144/75 144/75 - General Appearance General appearance: well-developed, appears stated age EENT: ATNC, PERRL, mucous membranes moist Neck: no JVD Respiratory: Present: Clear to Ascultation Cardiology: regular, S1S2 Gastrointestinal: normoactive bowel sounds Integumentary: no rash, other (no edema ) Neurologic: no focal deficit, strength 5/5, CN 3-12 intact - Lab 08/02/17 07:11 08/10/17 07:17 Most recent lab results Calcium 9.4 mg/dL (8.4-10.2) 08/10/17 07:17 Magnesium 2.20 mg/dL (1.7-2.3) 08/07/17 14:52
--- NOTE | 2017-08-10 18:38 | Progress Note ---
Assessment and Plan Assessment and plan: Ms. Arciniega is a 77-year-old woman admitted for syncope and JEANNE: -Transient autonomic imbalance/ Syncope; troponin negative, echo shows EF 35%, MPI neg, likely vasovagal, hold Lyrica and Exelon as he might have led to syncope -Systolic chf, euvolemic, stable -Hyperkalemia; may be related to SANJIV inhibitor, held SANJIV inhibitor, sp Kayexalate x2 -JEANNE/Chronic kidney disease stage 3, vasomotor nephropathy, poa; avoid nephrotoxins, ivf, renal us shows only medical renal disease with no hydronephrosis, renal consult appreciated -Alzheimer's dementia; supportive care -Hypertensive urgency : Optimize BP medications, held sanjiv due to jeanne and hyperkalemia -Acute metabolic encephalopathy, poa -Tachycardia, ekg shows sinus rythym, no further workup -DM; a1c of 8, added SSI Dispo: home with her daughter tomorrow if CR stable per Nephrology 08/10/17: Daughter refuses to come and pickling operator her Mother for discharge today. History Interval history: Patient was seen and examined. Follow-up on current diagnosis of AMS. Overnight uneventful. Patient denies any chest pain, shortness breath, nausea/ vomiting or severe headaches. Imaging, nursing note, chart, labs and old chart reviewed. Discussed with patient. Hospitalist Physical - Physical exam Narrative exam: GEN: WDWN, NAD, AWAKE, ALERT, ORIENTATED 2 patient stated the current year as 1991 HEENT: NCAT, EOMI, PERRL, OP Clear NECK: supple, no adenopathy, no thyromegaly, no JVD CVS/HEART: RRR, NORMAL S1S2, pulses present bilaterally CHEST/LUNGS: CTA B, Symmetrical chest expansion, good air entry bilaterally GI/Abdomen: soft, NTND, good bowel sounds, no guarding or rebound /Bladder: no suprapubic tenderness, no CVA or paraspinal tenderness EXT/Skin: no c/c/e, no obvious rash MSK: FROM x 4 Neuro: CN 2-12 grossly intact, no new focal deficits Psych: calm - Constitutional Vitals: Temp Pulse Resp BP Pulse Ox 98.0 F 78 20 135/67 81 L 08/10/17 16:38 08/10/17 09:47 08/10/17 16:38 08/10/17 16:38 08/09/17 19:53 General appearance: Present: no acute distress, well-nourished Results - Labs CBC & Chem 7: 08/02/17 07:11 08/10/17 07:17 Labs: Laboratory Last Values WBC 4.5 K/mm3 (4.5-11.0) 08/02/17 07:11 RBC 4.04 M/mm3 (3.65-5.03) 08/02/17 07:11 Hgb 11.4 gm/dl (10.1-14.3) 08/02/17 07:11 Hct 35.4 % (30.3-42.9) 08/02/17 07:11 MCV 88 fl (79-97) 08/02/17 07:11 MCH 28 pg (28-32) 08/02/17 07:11 MCHC 32 % (30-34) 08/02/17 07:11 RDW 14.2 % (13.2-15.2) 08/02/17 07:11 Plt Count 191 K/mm3 (140-440) 08/02/17 07:11 Add Manual Diff Complete 08/02/17 07:11 Total Counted 100 08/02/17 07:11 Seg Neuts % (Manual) 66.0 % (40.0-70.0) 08/02/17 07:11 Band Neutrophils % 0 % 08/02/17 07:11 Lymphocytes % (Manual) 24.0 % (13.4-35.0) 08/02/17 07:11 Reactive Lymphs % (Man) 0 % 08/02/17 07:11 Monocytes % (Manual) 9.0 % (0.0-7.3) H 08/02/17 07:11 Eosinophils % (Manual) 1.0 % (0.0-4.3) 08/02/17 07:11 Basophils % (Manual) 0 % (0.0-1.8) 08/02/17 07:11 Metamyelocytes % 0 % 08/02/17 07:11 Myelocytes % 0 % 08/02/17 07:11 Promyelocytes % 0 % 08/02/17 07:11 Blast Cells % 0 % 08/02/17 07:11 Nucleated RBC % Not Reportable 08/02/17 07:11 Seg Neutrophils # Man 3.0 K/mm3 (1.8-7.7) 08/02/17 07:11 Band Neutrophils # 0.0 K/mm3 08/02/17 07:11 Lymphocytes # (Manual) 1.1 K/mm3 (1.2-5.4) L 08/02/17 07:11 Abs React Lymphs (Man) 0.0 K/mm3 08/02/17 07:11 Monocytes # (Manual) 0.4 K/mm3 (0.0-0.8) 08/02/17 07:11 Eosinophils # (Manual) 0.0 K/mm3 (0.0-0.4) 08/02/17 07:11 Basophils # (Manual) 0.0 K/mm3 (0.0-0.1) 08/02/17 07:11 Metamyelocytes # 0.0 K/mm3 08/02/17 07:11 Myelocytes # 0.0 K/mm3 08/02/17 07:11 Promyelocytes # 0.0 K/mm3 08/02/17 07:11 Blast Cells # 0.0 K/mm3 08/02/17 07:11 WBC Morphology Not Reportable 08/02/17 07:11 Hypersegmented Neuts Not Reportable 08/02/17 07:11 Hyposegmented Neuts Not Reportable 08/02/17 07:11 Hypogranular Neuts Not Reportable 08/02/17 07:11 Smudge Cells Not Reportable 08/02/17 07:11 Toxic Granulation Not Reportable 08/02/17 07:11 Toxic Vacuolation Not Reportable 08/02/17 07:11 Dohle Bodies Not Reportable 08/02/17 07:11 Pelger-Huet Anomaly Not Reportable 08/02/17 07:11 Lisy Rods Not Reportable 08/02/17 07:11 Platelet Estimate Appears normal 08/02/17 07:11 Clumped Platelets Not Reportable 08/02/17 07:11 Plt Clumps, EDTA Not Reportable 08/02/17 07:11 Large Platelets Not Reportable 08/02/17 07:11 Giant Platelets Not Reportable 08/02/17 07:11 Platelet Satelliting Not Reportable 08/02/17 07:11 Plt Morphology Comment Not Reportable 08/02/17 07:11 RBC Morphology Not Reportable 08/02/17 07:11 Dimorphic RBCs Not Reportable 08/02/17 07:11 Polychromasia Not Reportable 08/02/17 07:11 Hypochromasia Not Reportable 08/02/17 07:11 Poikilocytosis Not Reportable 08/02/17 07:11 Anisocytosis Not Reportable 08/02/17 07:11 Microcytosis Not Reportable 08/02/17 07:11 Macrocytosis Not Reportable 08/02/17 07:11 Spherocytes Not Reportable 08/02/17 07:11 Pappenheimer Bodies Not Reportable 08/02/17 07:11 Sickle Cells Not Reportable 08/02/17 07:11 Target Cells Not Reportable 08/02/17 07:11 Tear Drop Cells Not Reportable 08/02/17 07:11 Ovalocytes Not Reportable 08/02/17 07:11 Helmet Cells Not Reportable 08/02/17 07:11 [place] Bodies Not Reportable 08/02/17 07:11 [place] Rings Not Reportable 08/02/17 07:11 Carlo Cells Not Reportable 08/02/17 07:11 Bite Cells Not Reportable 08/02/17 07:11 Crenated Cell Not Reportable 08/02/17 07:11 Elliptocytes Not Reportable 08/02/17 07:11 Acanthocytes (Spur) Not Reportable 08/02/17 07:11 Rouleaux Not Reportable 08/02/17 07:11 Hemoglobin C Crystals Not Reportable 08/02/17 07:11 Schistocytes Not Reportable 08/02/17 07:11 Malaria parasites Not Reportable 08/02/17 07:11 Ankit Bodies Not Reportable 08/02/17 07:11 Hem Pathologist Commnt No 08/02/17 07:11 Sodium 142 mmol/L (137-145) 08/10/17 07:17 Potassium 4.3 mmol/L (3.6-5.0) 08/10/17 07:17 Chloride 101.2 mmol/L (98-107) 08/10/17 07:17 Carbon Dioxide 27 mmol/L (22-30) 08/10/17 07:17 Anion Gap 18 mmol/L 08/10/17 07:17 BUN 34 mg/dL (7-17) H 08/10/17 07:17 Creatinine 1.4 mg/dL (0.7-1.2) H 08/10/17 07:17 Estimated GFR 44 ml/min 08/10/17 07:17 BUN/Creatinine Ratio 24 % 08/10/17 07:17 Glucose 206 mg/dL (65-100) H 08/10/17 07:17 POC Glucose 260 (70-105) H 08/10/17 17:34 Hemoglobin A1c 8.1 % (4-6) H 08/08/17 06:06 Calcium 9.4 mg/dL (8.4-10.2) 08/10/17 07:17 Magnesium 2.20 mg/dL (1.7-2.3) 08/07/17 14:52 Total Bilirubin < 0.20 mg/dL (0.1-1.2) 08/02/17 07:04 AST 18 units/L (5-40) 08/02/17 07:04 ALT 13 units/L (7-56) 08/02/17 07:04 Alkaline Phosphatase 85 units/L (35-129) 08/02/17 07:04 Total Creatine Kinase 86 units/L (30-135) 08/03/17 17:10 CK-MB (CK-2) 2.0 ng/mL (0.0-4.0) 08/03/17 17:10 CK-MB (CK-2) Rel Index 2.3 (0-4) 08/03/17 17:10 Troponin T 0.010 ng/mL (0.00-0.029) 08/03/17 17:10 NT-Pro-B Natriuret Pep 75.99 pg/mL (0-900) 08/02/17 07:04 Total Protein 7.6 g/dL (6.3-8.2) 08/02/17 07:04 Albumin 4.1 g/dL (3.9-5) 08/02/17 07:04 Albumin/Globulin Ratio 1.2 % 08/02/17 07:04 Urine Color Straw (Yellow) 08/02/17 13:35 Urine Turbidity Clear (Clear) 08/02/17 13:35 Urine pH 7.0 (5.0-7.0) 08/02/17 13:35 Ur Specific [place] 1.010 (1.003-1.030) 08/02/17 13:35 Urine Protein <15 mg/dl mg/dL (Negative) 08/02/17 13:35 Urine Glucose (UA) Neg mg/dL (Negative) 08/02/17 13:35 Urine Ketones Neg mg/dL (Negative) 08/02/17 13:35 Urine Blood Neg (Negative) 08/02/17 13:35 Urine Nitrite Neg (Negative) 08/02/17 13:35 Urine Bilirubin Neg (Negative) 08/02/17 13:35 Urine Urobilinogen < 2.0 mg/dL (<2.0) 08/02/17 13:35 Ur Leukocyte Esterase Neg (Negative) 08/02/17 13:35 Urine WBC (Auto) 2.0 /HPF (0.0-6.0) 08/02/17 13:35 Urine RBC (Auto) 2.0 /HPF (0.0-6.0) 08/02/17 13:35 U Epithel Cells (Auto) 1.0 /HPF (0-13.0) 08/02/17 13:35 Urine Bacteria (Auto) 1+ /HPF (Negative) 08/02/17 13:35 Urine Mucus Few /HPF 08/02/17 13:35 Urine Opiates Screen Presumptive negative 08/02/17 13:35 Urine Methadone Screen Presumptive negative 08/02/17 13:35 Ur Barbiturates Screen Presumptive negative 08/02/17 13:35 Levetiracetam 16.9 mcg/mL 08/02/17 14:42 Ur Phencyclidine Scrn Presumptive negative 08/02/17 13:35 Ur Amphetamines Screen Presumptive negative 08/02/17 13:35 U Benzodiazepines Scrn Presumptive negative 08/02/17 13:35 Urine Cocaine Screen Presumptive negative 08/02/17 13:35 U Marijuana (THC) Screen Presumptive negative 08/02/17 13:35 Drugs of Abuse Note Disclamer 08/02/17 13:35
[2017-08-10] MEDS: LOVENOX SUB-Q SCH (22:01)
[2017-08-10] MEDS: BENADRYL PO PRN (22:01)
[2017-08-10] MEDS: PRAVACHOL PO SCH (22:03)
[2017-08-11] MEDS: HumaLOG SUB-Q SCH ×4 (07:51→21:53)
[2017-08-11 07:55] LABS: Calcium 9.3 mg/dL (8.4-10.2)
[2017-08-11] MEDS: KEPPRA PO SCH ×2 (10:22→21:49)
[2017-08-11] MEDS: DITROPAN PO SCH ×2 (10:23→21:49)
[2017-08-11] MEDS: TOPROL XL PO SCH (10:23)
[2017-08-11] MEDS: NORVASC PO SCH (10:24)
[2017-08-11] MEDS: VITAMIN C PO SCH (10:24)
[2017-08-11] MEDS: OSCAL PO SCH (10:24)
[2017-08-11] MEDS: NAMENDA PO SCH ×2 (10:25→21:50)
[2017-08-11] MEDS: VITAMIN D3 PO SCH ×2 (10:25→21:49)
[2017-08-11] MEDS: SODIUM CHLORIDE FLUSH SYRINGE 10 ML IV SCH ×2 (10:26→21:53)
[2017-08-11] MEDS: VITAMIN E CAP PO SCH (10:27)
[2017-08-11] MEDS: BUTT PASTE/LIDOCAINE TP SCH ×2 (10:28→21:53)
--- NOTE | 2017-08-11 11:45 | Progress Note ---
Assessment and Plan Assessment and plan: Ms. Arciniega is a 77-year-old woman admitted for syncope and JEANNE: -Transient autonomic imbalance/ Syncope; troponin negative, echo shows EF 35%, MPI neg, likely vasovagal, hold Lyrica and Exelon as he might have led to syncope -Systolic chf, euvolemic, stable -Hyperkalemia; may be related to SANJIV inhibitor, held SANJIV inhibitor, sp Kayexalate x2 -JEANNE/Chronic kidney disease stage 3, vasomotor nephropathy, poa; avoid nephrotoxins, ivf, renal us shows only medical renal disease with no hydronephrosis, renal consult appreciated -Alzheimer's dementia; supportive care -Hypertensive urgency : Optimize BP medications, held sanjiv due to jeanne and hyperkalemia -Acute metabolic encephalopathy, poa -Tachycardia, ekg shows sinus rythym, no further workup -DM; a1c of 8, added SSI Dispo: home with her daughter tomorrow if CR stable per Nephrology 08/10/17: Daughter refuses to come and pickling drum operator her Mother for discharge today. 08/11/17: Awaiting daughter to come and get her mother, case management notified. Cr down to 1.3 History Interval history: Patient was seen and examined. Follow-up on current diagnosis of AMS. Overnight uneventful. Patient denies any chest pain, shortness breath, nausea/ vomiting or severe headaches. Imaging, nursing note, chart, labs and old chart reviewed. Discussed with patient. Hospitalist Physical - Physical exam Narrative exam: GEN: WDWN, NAD, AWAKE, ALERT, ORIENTATED 2 patient stated the current year as 1991 HEENT: NCAT, EOMI, PERRL, OP Clear NECK: supple, no adenopathy, no thyromegaly, no JVD CVS/HEART: RRR, NORMAL S1S2, pulses present bilaterally CHEST/LUNGS: CTA B, Symmetrical chest expansion, good air entry bilaterally GI/Abdomen: soft, NTND, good bowel sounds, no guarding or rebound /Bladder: no suprapubic tenderness, no CVA or paraspinal tenderness EXT/Skin: no c/c/e, no obvious rash MSK: FROM x 4 Neuro: CN 2-12 grossly intact, no new focal deficits Psych: calm - Constitutional Vitals: Temp Pulse Resp BP Pulse Ox 98.1 F 67 20 140/65 97 08/10/17 22:35 04/15/18 10:24 08/11/17 08:46 08/11/17 10:24 08/10/17 22:35 General appearance: Present: no acute distress, well-nourished Results - Labs CBC & Chem 7: 08/02/17 07:11 08/11/17 07:08 Labs: Laboratory Last Values WBC 4.5 K/mm3 (4.5-11.0) 08/02/17 07:11 RBC 4.04 M/mm3 (3.65-5.03) 08/02/17 07:11 Hgb 11.4 gm/dl (10.1-14.3) 08/02/17 07:11 Hct 35.4 % (30.3-42.9) 08/02/17 07:11 MCV 88 fl (79-97) 08/02/17 07:11 MCH 28 pg (28-32) 08/02/17 07:11 MCHC 32 % (30-34) 08/02/17 07:11 RDW 14.2 % (13.2-15.2) 08/02/17 07:11 Plt Count 191 K/mm3 (140-440) 08/02/17 07:11 Add Manual Diff Complete 08/02/17 07:11 Total Counted 100 08/02/17 07:11 Seg Neuts % (Manual) 66.0 % (40.0-70.0) 08/02/17 07:11 Band Neutrophils % 0 % 08/02/17 07:11 Lymphocytes % (Manual) 24.0 % (13.4-35.0) 08/02/17 07:11 Reactive Lymphs % (Man) 0 % 08/02/17 07:11 Monocytes % (Manual) 9.0 % (0.0-7.3) H 08/02/17 07:11 Eosinophils % (Manual) 1.0 % (0.0-4.3) 08/02/17 07:11 Basophils % (Manual) 0 % (0.0-1.8) 08/02/17 07:11 Metamyelocytes % 0 % 08/02/17 07:11 Myelocytes % 0 % 08/02/17 07:11 Promyelocytes % 0 % 08/02/17 07:11 Blast Cells % 0 % 08/02/17 07:11 Nucleated RBC % Not Reportable 08/02/17 07:11 Seg Neutrophils # Man 3.0 K/mm3 (1.8-7.7) 08/02/17 07:11 Band Neutrophils # 0.0 K/mm3 08/02/17 07:11 Lymphocytes # (Manual) 1.1 K/mm3 (1.2-5.4) L 08/02/17 07:11 Abs React Lymphs (Man) 0.0 K/mm3 08/02/17 07:11 Monocytes # (Manual) 0.4 K/mm3 (0.0-0.8) 08/02/17 07:11 Eosinophils # (Manual) 0.0 K/mm3 (0.0-0.4) 08/02/17 07:11 Basophils # (Manual) 0.0 K/mm3 (0.0-0.1) 08/02/17 07:11 Metamyelocytes # 0.0 K/mm3 08/02/17 07:11 Myelocytes # 0.0 K/mm3 08/02/17 07:11 Promyelocytes # 0.0 K/mm3 08/02/17 07:11 Blast Cells # 0.0 K/mm3 08/02/17 07:11 WBC Morphology Not Reportable 08/02/17 07:11 Hypersegmented Neuts Not Reportable 08/02/17 07:11 Hyposegmented Neuts Not Reportable 08/02/17 07:11 Hypogranular Neuts Not Reportable 08/02/17 07:11 Smudge Cells Not Reportable 08/02/17 07:11 Toxic Granulation Not Reportable 08/02/17 07:11 Toxic Vacuolation Not Reportable 08/02/17 07:11 Dohle Bodies Not Reportable 08/02/17 07:11 Pelger-Huet Anomaly Not Reportable 08/02/17 07:11 Lisy Rods Not Reportable 08/02/17 07:11 Platelet Estimate Appears normal 08/02/17 07:11 Clumped Platelets Not Reportable 08/02/17 07:11 Plt Clumps, EDTA Not Reportable 08/02/17 07:11 Large Platelets Not Reportable 08/02/17 07:11 Giant Platelets Not Reportable 08/02/17 07:11 Platelet Satelliting Not Reportable 08/02/17 07:11 Plt Morphology Comment Not Reportable 08/02/17 07:11 RBC Morphology Not Reportable 08/02/17 07:11 Dimorphic RBCs Not Reportable 08/02/17 07:11 Polychromasia Not Reportable 08/02/17 07:11 Hypochromasia Not Reportable 08/02/17 07:11 Poikilocytosis Not Reportable 08/02/17 07:11 Anisocytosis Not Reportable 08/02/17 07:11 Microcytosis Not Reportable 08/02/17 07:11 Macrocytosis Not Reportable 08/02/17 07:11 Spherocytes Not Reportable 08/02/17 07:11 Pappenheimer Bodies Not Reportable 08/02/17 07:11 Sickle Cells Not Reportable 08/02/17 07:11 Target Cells Not Reportable 08/02/17 07:11 Tear Drop Cells Not Reportable 08/02/17 07:11 Ovalocytes Not Reportable 08/02/17 07:11 Helmet Cells Not Reportable 08/02/17 07:11 [place] Bodies Not Reportable 08/02/17 07:11 [place] Rings Not Reportable 08/02/17 07:11 Carlo Cells Not Reportable 08/02/17 07:11 Bite Cells Not Reportable 08/02/17 07:11 Crenated Cell Not Reportable 08/02/17 07:11 Elliptocytes Not Reportable 08/02/17 07:11 Acanthocytes (Spur) Not Reportable 08/02/17 07:11 Rouleaux Not Reportable 08/02/17 07:11 Hemoglobin C Crystals Not Reportable 08/02/17 07:11 Schistocytes Not Reportable 08/02/17 07:11 Malaria parasites Not Reportable 08/02/17 07:11 Ankit Bodies Not Reportable 08/02/17 07:11 Hem Pathologist Commnt No 08/02/17 07:11 Sodium 137 mmol/L (137-145) 08/11/17 07:08 Potassium 4.8 mmol/L (3.6-5.0) 08/11/17 07:08 Chloride 99.2 mmol/L (98-107) 08/11/17 07:08 Carbon Dioxide 26 mmol/L (22-30) 08/11/17 07:08 Anion Gap 17 mmol/L 08/11/17 07:08 BUN 25 mg/dL (7-17) H 08/11/17 07:08 Creatinine 1.3 mg/dL (0.7-1.2) H 08/11/17 07:08 Estimated GFR 48 ml/min 08/11/17 07:08 BUN/Creatinine Ratio 19 % 08/11/17 07:08 Glucose 162 mg/dL (65-100) H 08/11/17 07:08 POC Glucose 169 (70-105) H 08/11/17 06:31 Hemoglobin A1c 8.1 % (4-6) H 08/08/17 06:06 Calcium 9.3 mg/dL (8.4-10.2) 08/11/17 07:08 Magnesium 2.20 mg/dL (1.7-2.3) 08/07/17 14:52 Total Bilirubin < 0.20 mg/dL (0.1-1.2) 08/02/17 07:04 AST 18 units/L (5-40) 08/02/17 07:04 ALT 13 units/L (7-56) 08/02/17 07:04 Alkaline Phosphatase 85 units/L (35-129) 08/02/17 07:04 Total Creatine Kinase 86 units/L (30-135) 08/03/17 17:10 CK-MB (CK-2) 2.0 ng/mL (0.0-4.0) 08/03/17 17:10 CK-MB (CK-2) Rel Index 2.3 (0-4) 08/03/17 17:10 Troponin T 0.010 ng/mL (0.00-0.029) 08/03/17 17:10 NT-Pro-B Natriuret Pep 75.99 pg/mL (0-900) 08/02/17 07:04 Total Protein 7.6 g/dL (6.3-8.2) 08/02/17 07:04 Albumin 4.1 g/dL (3.9-5) 08/02/17 07:04 Albumin/Globulin Ratio 1.2 % 08/02/17 07:04 Urine Color Straw (Yellow) 08/02/17 13:35 Urine Turbidity Clear (Clear) 08/02/17 13:35 Urine pH 7.0 (5.0-7.0) 08/02/17 13:35 Ur Specific [place] 1.010 (1.003-1.030) 08/02/17 13:35 Urine Protein <15 mg/dl mg/dL (Negative) 08/02/17 13:35 Urine Glucose (UA) Neg mg/dL (Negative) 08/02/17 13:35 Urine Ketones Neg mg/dL (Negative) 08/02/17 13:35 Urine Blood Neg (Negative) 08/02/17 13:35 Urine Nitrite Neg (Negative) 08/02/17 13:35 Urine Bilirubin Neg (Negative) 08/02/17 13:35 Urine Urobilinogen < 2.0 mg/dL (<2.0) 08/02/17 13:35 Ur Leukocyte Esterase Neg (Negative) 08/02/17 13:35 Urine WBC (Auto) 2.0 /HPF (0.0-6.0) 08/02/17 13:35 Urine RBC (Auto) 2.0 /HPF (0.0-6.0) 08/02/17 13:35 U Epithel Cells (Auto) 1.0 /HPF (0-13.0) 08/02/17 13:35 Urine Bacteria (Auto) 1+ /HPF (Negative) 08/02/17 13:35 Urine Mucus Few /HPF 08/02/17 13:35 Urine Opiates Screen Presumptive negative 08/02/17 13:35 Urine Methadone Screen Presumptive negative 08/02/17 13:35 Ur Barbiturates Screen Presumptive negative 08/02/17 13:35 Levetiracetam 16.9 mcg/mL 08/02/17 14:42 Ur Phencyclidine Scrn Presumptive negative 08/02/17 13:35 Ur Amphetamines Screen Presumptive negative 08/02/17 13:35 U Benzodiazepines Scrn Presumptive negative 08/02/17 13:35 Urine Cocaine Screen Presumptive negative 08/02/17 13:35 U Marijuana (THC) Screen Presumptive negative 08/02/17 13:35 Drugs of Abuse Note Disclamer 08/02/17 13:35
--- NOTE | 2017-08-11 13:51 | Progress Note ---
Assessment and Plan - Patient Problems (1) Acute kidney injury Current Visit: Yes Status: Acute Plan to address problem: Acute kidney injury Pre-renal azotemia vs acute tubular necrosis secondary to hypotension, now with improved renal function. Patient can be discharged home from my standpoint (2) Pre-syncope Current Visit: Yes Status: Acute Plan to address problem: Question secondary to hypotension. Cardiac workup noted. Blood pressure is stable off of SANJIV inhibitor (3) Hypertensive chronic kidney disease with stage 1 through stage 4 chronic kidney disease, or unspecified chronic kidney disease Current Visit: Yes Status: Acute Plan to address problem: Blood pressure is stable off of SANJIV inhibitor. May resume at a lower dose and then discontinue amlodipine when blood pressure is stable and kidney function has improved back to baseline. 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 (5) Type 2 diabetes mellitus with diabetic nephropathy Current Visit: Yes Status: Acute Plan to address problem: Blood sugar management by primary attending Subjective Date of service: 08/11/17 Principal diagnosis: Presyncope, HTN, Cardiomyopathy, DM, Dementia Interval history: Pt awake, in no acute distress. Objective - Vital Signs Vital signs: Vital Signs - 12hr 08/11/17 08/11/17 08/11/17 08:46 10:23 10:24 Pulse Rate 67 67 Respiratory 20 Rate Blood Pressure 140/65 140/65 - General Appearance General appearance: well-developed, well-nourished, appears stated age EENT: ATNC, PERRL, mucous membranes moist Neck: no JVD Respiratory: Present: Clear to Ascultation Cardiology: regular, S1S2 Gastrointestinal: normoactive bowel sounds Integumentary: no rash, other (no edema ) Neurologic: no focal deficit, alert and oriented x3, strength 5/5, CN 3-12 intact Psychiatric: mood/affect appropriate, cooperative - Lab 08/02/17 07:11 08/11/17 07:08 Most recent lab results Calcium 9.3 mg/dL (8.4-10.2) 08/11/17 07:08 Magnesium 2.20 mg/dL (1.7-2.3) 08/07/17 14:52
[2017-08-11 17:25] VITALS: BP 129/61
[2017-08-11] MEDS: PRAVACHOL PO SCH (21:50)
[2017-08-11] MEDS: LOVENOX SUB-Q SCH (21:50)
== END 2017-08-11 22:35 | disposition home or self-care (01) | DRG 70 ==
LOC: ED 06:11 → 3A 09:57
PROVIDERS: ADMIT Internal Medicine; ATTEND Internal Medicine
DX: G93.41 Metabolic encephalopathy (principal); N17.0 Acute kidney failure with tubular necrosis; I50.20 Unspecified systolic (congestive) heart failure; I13.0 Hypertensive heart and chronic kidney disease with heart failure and stage 1 through stage 4 chronic kidney disease, or unspecified chronic kidney disease; I42.9 Cardiomyopathy, unspecified; G90.8 Other disorders of autonomic nervous system; R55 Syncope and collapse; E87.5 Hyperkalemia; I16.0 Hypertensive urgency; N18.3 Chronic kidney disease, stage 3 (moderate); G30.9 Alzheimer's disease, unspecified; F02.80 Dementia in other diseases classified elsewhere, unspecified severity, without behavioral disturbance, psychotic disturbance, mood disturbance, and anxiety; E11.22 Type 2 diabetes mellitus with diabetic chronic kidney disease; K21.9 Gastro-esophageal reflux disease without esophagitis; M19.90 Unspecified osteoarthritis, unspecified site; F41.9 Anxiety disorder, unspecified; E11.40 Type 2 diabetes mellitus with diabetic neuropathy, unspecified; E78.5 Hyperlipidemia, unspecified; G40.909 Epilepsy, unspecified, not intractable, without status epilepticus; E11.21 Type 2 diabetes mellitus with diabetic nephropathy; Z79.899 Other long term (current) drug therapy; Z91.013 Allergy to seafood; Z86.73 Personal history of transient ischemic attack (TIA), and cerebral infarction without residual deficits; Z90.710 Acquired absence of both cervix and uterus; Z82.49 Family history of ischemic heart disease and other diseases of the circulatory system; Z83.3 Family history of diabetes mellitus
CPT/HCPCS: 36415; 70450; 71045; 76770; 78452; 80048; 80053; 80177; 80307; 81001; 82550; 82553; 82962; 83036; 83735; 83880; 84484; 85007; 85025; 93005; 93010; 93017; 93306; 95819; 96365; A9270-GY; A9502; J1650; J1815; J1953; J2060; J2785